=== PATIENT | female | born 1985 | race Two or more races ===

== ENCOUNTER 2024-02-11 12:31 | Inpatient (IN) | payer MEDICAID, SELFPAY ==
[2024-02-11 13:05] VITALS: BP 129/76; PULSE 112; RESP 18; TEMP 37.6; O2SAT 96; BMI 34.1
--- NOTE | 2024-02-11 13:07 | XR_ITS ---
Examination: CT abdomen and pelvis without contrast. Coronal 3-D reconstructions. Sagittal 2-D reconstructions. Date and time of exam:February 11, 2024 1317 hours INDICATIONS: Bilateral flank pain beginning today CTDI: vol (mGy): 14.5 DLP: (mGycm): 900 Technique: Axial images of the abdomen have been obtained, 3 mm slice thickness Intravenous contrast material has not been administered. Low dose protocols were performed. One or more of the following dose reduction techniques were used; automated exposure control, adjustment of the mA and/or KV according to patient size, use of iterative reconstruction technique. Findings: Diffuse fatty infiltration throughout the liver Suspicious for gallbladder sludge Spleen is not enlarged No pancreatic or adrenal mass Mild bilateral renal parenchymal scar formation No renal or ureteral calculi, no hydronephrosis Aorta normal size Normal appendix 15 mm fat-containing umbilical hernia No bowel obstruction or diverticulitis Anteverted uterus No bladder mass or bladder calculi The osseous structures are intact IMPRESSION: No renal or ureteral calculi, no hydronephrosis Mild bilateral renal parenchymal scar formation Normal appendix No bladder mass or bladder calculi
--- NOTE | 2024-02-11 13:07 | PD.EDRME ---
Rapid Medical Screening Exam RME Arrival date/time: 02/11/24 12:31 38-year-old female presents emergency department complaint of abdominal pain and back pain patient reports dysuria Chief Complaint: Nausea/Vomiting/Diarrhea Vital signs: Vital Signs Temperature 99.6 F 02/11/24 13:05 Pulse Rate 112 H 02/11/24 13:05 Respiratory Rate 18 02/11/24 13:05 Blood Pressure 129/76 02/11/24 13:05 Pulse Oximetry (%) 96 02/11/24 13:05 Oxygen Delivery Method Room Air 02/11/24 13:05
[2024-02-11 13:46] LABS: Basophils # (Auto) 0.1 Thou/mm3 (0.0-0.2); Basophils % (Auto) 0 % (0-2.5); Eosinophils % (Auto) 0 % (0-10); Hemoglobin 11.9 g/dL (12.0-16.0); Immature Granulocytes % (Auto) 1 % (0-0); Immature Granulocytes Auto 0.07 Thou/mm3 (0.00-0.00); Lymphocytes # (Auto) 0.9 Thou/mm3 (1.0-4.8); Lymphocytes % (Auto) 6 % (10-50); Mean Corpuscular HGB Conc 33.1 g/dl (31.0-37.0); Mean Corpuscular Volume 82 fL (80-100); Monocytes # (Auto) 0.7 Thou/mm3 (0.0-0.8); Monocytes % (Auto) 5 % (0-12); Neutrophils # (Auto) 13.1 Thou/mm3 (1.8-7.7); Neutrophils % (Auto) 88 % (37-80); Nucleated Red Blood Cell % 0 /100 WBC (0); Platelet Count 259 Thou/mm3 (140-440); RDW Standard Deviation 40.7 fL (36.4-46.3); White Blood Count 14.9 Thou/mm3 (3.6-11.0)
[2024-02-11 14:14] LABS: Alanine Aminotransferase 11 U/L (10-49); Albumin, Serum 4.2 gm/dL (3.5-5.0); Albumin/Globulin Ratio 1.5 (1.2-2.2); Alkaline Phosphatase 110 U/L (46-116); Anion Gap 9 (7-16); Aspartate Amino Transferase 10 U/L (0-34); BUN/Creatinine Ratio 10 Ratio (12-20); Bilirubin,Total 0.8 mg/dL (0.3-1.2); Blood Urea Nitrogen 7 mg/dL (9-23); Calcium 8.8 mg/dL (8.3-10.6); Calcium (Corrected) 8.8 mg/dL (8.5-10.1); Carbon Dioxide 24.3 mMol/L (20.0-31.0); Chloride 98 mMol/L (98-107); Creatinine (Component) 0.7 mg/dL (0.6-1.3); Globulin 2.8 gm/dL (2.3-3.5); Lipase 26 U/L (12-53); Osmolality,Calculated 279 (275-295); Potassium 3.5 mMol/L (3.4-5.1); Sodium 131 mMol/L (136-145); eGFR > 60 See Note
[2024-02-11 14:16] LABS: Glucose 445 mg/dL (74-106)
[2024-02-11] MEDS: ONDANSETRON ODT 4 MG TABRAP PO (14:18)
[2024-02-11] MEDS: KETOROLAC INJ 30 MG/ML VIAL IM (14:19)
[2024-02-11 15:25] LABS: Collection Type, Urine Clean Catch
[2024-02-11 15:36] LABS: Bacteria,Urine 1+; Bilirubin,Urine Negative (Negative); Blood,Urine 3+ (Negative); Color,Urine Yellow (Lt Yel-Yel); Glucose, Urine 4+ (Negative); Ketones,Urine 3+ (Negative); Leukocyte Esterase,Urine Positive (Negative); Nitrite,Urine Positive (Negative); Protein,Urine 1+ (Neg - Trace); RBC,Urine 59 /hpf (0-3); Specific Gravity,Urine 1.033 (1.001-1.035); Squamous Epithelial Cell,Urine 7 /hpf (0-5); Urobilinogen,Urine Negative mg/dL (0.0-1.0); WBC,Urine 1828 /hpf (0-5)
[2024-02-11 15:46] LABS: Clarity,Urine Cloudy (Clear/Hazy); Culture Indicated,Urine Yes
[2024-02-11 17:29] VITALS: BP 105/71; PULSE 95; RESP 16; TEMP 36.7; O2SAT 97
[2024-02-11 19:07] VITALS: BP 110/95; PULSE 101; RESP 18; TEMP 37.2; O2SAT 97
--- NOTE | 2024-02-11 19:23 | EKG_ITS ---
[facility] Test Date: 2024-02-11 Pat Name: DANG RANDHAWA Department: Room: - Gender: Female [employer] T[employer]: : 1985 Requested By: Natalio Trujillo Order Number: [id number] Reading MD: Natalio Trujillo Measurements Intervals [place] Rate: 92 P: 47 NC: 134 QRS: -6 QRSD: 98 T: 18 QT: 371 QTc: 460 Interpretive Statements SINUS RHYTHM POSSIBLE ANTERIOR MYOCARDIAL INFARCTION , OF INDETERMINATE AGE [30 ms Q WAVE IN V3/V4, OR R < 0.2 mV IN V4] Compared to ECG 08/19/2017 17:27:31 No significant changes /store/S0/[id number].pdf
[2024-02-11] MEDS: SODIUM CHLORIDE 0.9% 1000 ML 1,710 ML 1710 ML IV (19:40)
[2024-02-11] MEDS: ACETAMINOPHEN IVPB 1,000 MG/100 ML VIAL 250 MG IV (19:40)
[2024-02-11] MEDS: KETOROLAC INJ 30 MG/ML VIAL IVP (19:41)
[2024-02-11 20:00] LABS: Lactate (Lactic Acid) 1.1 mMol/L (0.4-2.0)
[2024-02-11 20:15] LABS: Partial Thromboplastin Time 26.9 Seconds (22.0-36.0); Prothrombin Time 11.2 Seconds (9.0-12.2)
[2024-02-11 20:18] LABS: B-Type Natriuretic Peptide < 20 pg/mL (0-100)
[2024-02-11 20:27] LABS: LDH (Lactate Dehydrogenase) 138 U/L (120-246); Magnesium 1.8 mg/dL (1.6-2.6); Phosphorous 3.1 mg/dL (2.4-5.1); Procalcitonin 1.11 ng/ml (0.0-0.49); Troponin I < 0.002 ng/mL (0.0-0.045)
[2024-02-11] MEDS: cefTRIAXone 1,000 MG in SODIUM CHLORIDE 0.9% (P) 50 ML 100 MG IV (20:28)
--- NOTE | 2024-02-11 20:56 | EDNOTE_ITS ---
Nausea/Vomit./Diarrhea-RME/HPI General Chief complaint: Nausea/Vomiting/Diarrhea Stated complaint: Fever, vomiting and pain in her back Time Seen by Provider: 02/11/24 19:17 Arrival date/time: 02/11/24 12:31 RME / HPI RME / HPI Narrative: 02/11/24 12:31 38-year-old female presents emergency department complaint of abdominal pain and back pain patient reports dysuria ------- Dr. Tam?s Main ED Evaluation: Patient is a 38-year-old diabetic female who presents to the emergency department with several days of increasingly severe bilateral flank pain, R greater than L, with dysuria and urinary frequency. Pat ient also complains of chills, sweats, fevers at home. Also body aches. Patient had nausea and vomiting prior to arrival but no diarrhea. No chest pain or dyspnea. No further medical complaints. Related Data Home Medications ?Medication ?Instructions ?Recorded ?Confirmed insulin glargine 100 unit/mL (3 85 unit subcut QDAY 05/08/22 05/08/22 mL) subcutaneous pen (Basaglar KwikPen U-100 Insulin) Previous Rx's ?Medication ?Instructions ?Recorded ondansetron HCl 4 mg tablet 4 mg PO TID PRN nausea and 05/09/22 vomiting #14 tabs ciprofloxacin HCl 500 mg tablet 500 mg PO BID #14 tabs 04/03/23 Allergies Allergy/AdvReac Type Severity Reaction Status Date / Time No Known Allergies Allergy Verified 04/03/23 16:12 Review of Systems Review of Systems Systems Reviewed: All systems reviewed, normal except as documented Past Medical History Past Medical History NEUROLOGIC: Negative Neurological Disorders or Seizures CARDIAC: Negative Cardiac Disorders or Congestive Heart Failure RESPIRATORY: Negative Chronic Obstructive Pulmonary Disease (COPD) or Asthma GASTROINTESTINAL: Positive Gastrointestinal Disorders and Obesity; Negative Hepatitis or Colorectal Cancer GENITOURINARY: Negative Genitourinary Disorders, Renal Disease or Prostate Cancer REPRODUCTIVE: Positive Genital Herpes; Negative Breast Cancer or Testicular Cancer MUSCULOSKELETAL: Positive Musculoskeletal Disorders; Negative Bone Cancer ENDOCRINE: Positive Endocrine Disorders and Diabetes Mellitus Type 2; Negative Diabetes Mellitus Type 1 HEMATOLOGIC: Negative Blood Disorders or Sickle Cell Disease OTHER HISTORY: Positive Chicken Pox; Negative Autoimmune Disease, Blood Transfusions, Blood Transfusion Reaction, Anesthesia Reactions, Organ Transplant, Chemotherapy, Radiation Therapy, Hyperbaric Therapy, MRSA, VRSA, Vancomycin-Resistant Enterococci, Human Immunodeficiency Virus (HIV), Measles, Mumps, Rubella (Tajik Measles), Pertussis, Clostridium Difficile, Cancer, Breast Cancer, Cervical Cancer, Colorectal Cancer, Lung Cancer, Ovarian Cancer, Prostate Cancer or Testicular Cancer Family History FAMILY HISTORY: Positive Family Respiratory Disorders and Family Cardiac Disorders; Negative Family Psychiatric Problems, Family Gastrointestinal Problems, Family Cancer, Family Surgery or Family Anesthesia Reaction Surgical History SURGICAL: Positive Section; Negative Organ Transplant Social History SMOKING STATUS: Never smoker SECOND HAND EXPOSURE: Yes SUBSTANCE USE: does not use ED Exam Narrative Physical exam: GENERAL APPEARANCE: alert and oriented x 4, well-developed, well-nourished, no acute distress VITALS: All vitals were reviewed and the pulse ox is 97% on room air, which is normal according to my interpretation. HEENT: Normocephalic, atraumatic; pupils equal, round, reactive to light; EOMI; mucous membranes pink, moist; oropharynx clear NECK: Supple LUNGS: CTABL; no wheezes, no rales, no rhonchi HEART: Tachycardic, regular rhythm; normal S1, S2; no murmurs ABDOMEN: non distended; normal BS; soft, no tenderness, no guarding, no rebound; no masses, no organomegaly, no hernia BACK: R>L CVA tenderness EXTREMITIES: atraumatic; no edema NEUROLOGIC: awake; alert and oriented x4; cranial nerves II-XII grossly intact; no focal sensory or motor deficits PSYCHIATRIC: appropriate mood and affect SKIN: warm, dry, normal color; no rashes Course Course Course Narrative: 1925: Sepsis alert initiated. Orders made at this time are congruent with ED Adult Sepsis Order List. Re-evaluation is to be completed. 2100: NS IVF infused. 2129: Sepsis reassessment performed consisting of lab review, vitals, physical exam including auscultation of heart, lungs, and visual evaluation of capillary refills, mucosal membranes and extremities. Quality Measures Possible source: genitourinary Blood cultures ordered: yes Antibiotic ordered: Yes Pertinent labs: 02/11/24 19:34 Lactic Acid 1.1 mMol/L (0.4-2.0) Procalcitonin 1.11 H ng/ml (0.0-0.49) sepsis Orders Category Date Time Status Bedside COVID-19 Antigen Test NOW Care 02/11/24 19:47 Completed Sponge Clipper STAT Care 02/11/24 19:23 Active Continuous Pulse Oximetry STAT Care 02/11/24 19:23 Completed EKG (ED ONLY) *Do not use* NOW Care 02/11/24 19:23 Completed Insert IV NOW Care 02/11/24 19:23 Completed NPO STAT Care 02/11/24 19:23 Active Strict Intake and Output Routine Care 02/11/24 19:[address] abdomen pelvis wo con Stat Exams 02/11/24 13:07 Completed EKG (ED Only) Stat Exams 02/11/24 19:23 Draft B-Type Natriuretic Peptide Stat Lab 02/11/24 19:34 Completed Blood Culture (Lab) Stat Lab 02/11/24 19:40 Received CBC Stat Lab 02/11/24 13:38 Completed Comprehensive Metabolic Panel Stat Lab 02/11/24 13:38 Completed LDH (Lactate Dehydrogenase) Stat Lab 02/11/24 19:34 Completed Lactate (Lactic Acid) Stat Lab 02/11/24 19:34 Completed Lipase Stat Lab 02/11/24 13:38 Completed Magnesium Stat Lab 02/11/24 19:34 Completed Partial Thromboplastin Time Stat Lab 02/11/24 19:40 Completed Phosphorous Stat Lab 02/11/24 19:34 Completed Procalcitonin Stat Lab 02/11/24 19:34 Completed Prothrombin Time with INR Stat Lab 02/11/24 19:40 Completed Troponin I Stat Lab 02/11/24 19:34 Completed UA, C/S IF [Urinalysis, C/S if Indicated] Stat Lab 02/11/24 15:02 Completed Urine Culture Stat Lab 02/11/24 15:02 Received Urine Culture Stat Lab 02/11/24 23:40 Received Acetaminophen Ivpb [Ofirmev Inj] Med 02/11/24 19:25 Discontinued 1,000 mg in 100 ml IV Q6H Insulin Regular Med 02/11/24 20:50 Discontinued 6 unit IV X1 ONE Ketorolac Inj [Toradol Inj] Med 02/11/24 13:07 Discontinued 30 mg IM X1 ONE Ketorolac Inj [Toradol Inj] Med 02/11/24 19:25 Discontinued 30 mg IVP X1 ONE Ondansetron Odt [Zofran Odt] Med 02/11/24 13:07 Discontinued 4 mg PO X1 ONE Sodium Chloride 0.9% 1000 ml [Ns] 1,710 ml Med 02/11/24 19:23 Discontinued IV 1,710 mls/hr cefTRIAXone [Rocephin] 1,000 mg Med 02/11/24 19:23 Discontinued Sodium Chloride 0.9% (P) [Ns 0.9% (P)] 50 ml IV X1 Vital Signs Vital signs: Vital Signs Temperature 99.6 F 02/11/24 13:05 Pulse Rate 112 H 02/11/24 13:05 Respiratory Rate 18 02/11/24 13:05 Blood Pressure 129/76 02/11/24 13:05 Pulse Oximetry (%) 96 02/11/24 13:05 Oxygen Delivery Method Room Air 02/11/24 13:05 Nausea/Vomiting/Diarrhea MDM Narrative MDM Narrative:: Patient has UTI plus tachycardia and along with her leukocytosis she meets sepsis criteria. Lactate is normal. She got Rocephin 1 g, 30 cc/kilogram normal saline bolus as well as Ofirmev IV and ketorolac IV. For pain. Patient data External records reviewed:: [facility] previous records (Per chart review, patient was seen here on 03/03/23 for a UTI.) Clinical information provided by:: patient Social determinants that could affect healthcare access:: none Patient has the following chronic illnesses:: DM How is presenting disease/condition affected by chronic disease/condition?: exacerbated by Evaluation data The following diagnostics were reviewed and interpreted by me:: lab results, radiology exam(s) and EKG tracing(s) Lab and/or radiology exams considered but not ordered:: none Interpretation Summary: WBC count is elevated at 14.9, Sodium is slightly low at 131, Glucose is elevated at 445, anion gap is normal at 9, Lactate is normal at 1.1, Procalcitonin is elevated at 1.1, troponin is normal, BNP is normal, according to my interpretation. EKG done at 2126, NSR, rate of 92, left axis deviation, no ectopy, Q waves in lead III and avF, no acute ischemia, according to my interpretation. ----- [place] [facility] Report Signed Patient: DANG RIVAS. Record#: [id number] Birthdate: 1985 Age/Sex: 38 / F Location: [facility] Attending Dr: Ordering Physician: Colten NIETO)Jesus NP Date of Service: 02/11/24 Procedure(s): CT abdomen pelvis wo [facility] Accession Number(s): [id number] cc: Colten (GURMEET),Jesus LEVI; Maryanne RivasP; Drew Rincon MD~ Examination: CT abdomen and pelvis without contrast. Coronal 3-D reconstructions. Sagittal 2-D reconstructions. Date and time of exam:February 11, 2024 1317 hours INDICATIONS: Bilateral flank pain beginning today CTDI: vol (mGy): 14.5 DLP: (mGycm): 900 Technique: Axial images of the abdomen have been obtained, 3 mm slice thickness Intravenous contrast material has not been administered. Low dose protocols were performed. One or more of the following dose reduction techniques were used; automated exposure control, adjustment of the mA and/or KV according to patient size, use of iterative reconstruction technique. Findings: Diffuse fatty infiltration throughout the liver Suspicious for gallbladder sludge Spleen is not enlarged No pancreatic or adrenal mass Mild bilateral renal parenchymal scar formation No renal or ureteral calculi, no hydronephrosis Aorta normal size Normal appendix 15 mm fat-containing umbilical hernia No bowel obstruction or diverticulitis Anteverted uterus No bladder mass or bladder calculi The osseous structures are intact IMPRESSION: No renal or ureteral calculi, no hydronephrosis Mild bilateral renal parenchymal scar formation Normal appendix No bladder mass or bladder calculi Dictated By: Drew Rincon MD Signed By: <Electronically signed by Drew Rincon MD in OV> 02/11/24 1348 Medications / Prescriptions Medications / Prescriptions considered but not ordered:: none Medication administrations:: Medication Administration History Acetaminophen (Acetaminophen 325 Mg Tablet) 650 mg PO Q6HR PRN PRN Reason: PAIN OR FEVER > 101 Stop: 03/12/24 21:45 Last Admin: 02/12/24 01:03 Dose: 650 mg Documented By: FF Dextrose (Dextrose 50%-Water Inj 50 Ml Syringe) 25 ml IV Q15MIN PRN PRN Reason: BG 50-70 responsive npo pt Stop: 03/12/24 21:49 Dextrose (Dextrose 50%-Water Inj 50 Ml Syringe) 50 ml IV Q15MIN PRN PRN Reason: BG <50 OR BG <70 & pt unresponsive Stop: 03/12/24 21:49 Glucagon (Glucagon Inj 1 Mg Vial) 1 mg IM Q15MIN PRN PRN Reason: BG <70, and no IV access Ceftriaxone Sodium/Dextrose (Rocephin/D5w 1gm Iv Premix) 50 mls @ 100 mls/hr IV HS [facility] Stop: 02/19/24 20:59 Insulin Glargine (Insulin Glargine (Lantus) 5 Unit/0.05 Ml (Per 5 Units)) 45 unit SC HS [facility] Stop: 03/13/24 20:59 Insulin Human Lispro (Insulin Lispro (Admelog) 1 Unit/0.01 Ml Unit) 0 unit SC [facility]; Protocol Stop: 03/13/24 07:29 Ondansetron HCl (Ondansetron Inj 2 Mg/Ml Inj 2 Ml) 4 mg IV Q6H PRN; Protocol PRN Reason: NAUSEA OR VOMITING Stop: 03/12/24 21:33 Oxycodone/Acetaminophen (Oxycodone/Apap 5/325 Tablet) 1 tab PO Q6H PRN PRN Reason: Pain Scale 4-10 (Moderate Stop: 02/16/24 21:33 Last Admin: 02/12/24 02:44 Dose: 1 tab Documented By: BRAULIO Pantoprazole Sodium (Pantoprazole 40 Mg Tablet) 40 mg PO QDAY [facility] Stop: 03/13/24 08:59 Sennosides (Senna Tablet) 1 tab PO QDAY [facility]; Protocol Stop: 03/13/24 08:59 Discontinued Medications Heparin Sodium (Porcine) (Heparin Sod Inj 5000 Unit/Ml Vial) 5,000 unit SC X1 ONE Stop: 02/11/24 21:43 Last Admin: 02/11/24 22:48 Dose: 5,000 unit Documented By: TAMMY Co-signed By: YAAKOV Sodium Chloride (Ns) 1,710 mls @ 1,710 mls/hr 30 ml/kg infuse over 60 min (1710 ml) IV .Q1H ONE Stop: 02/11/24 20:22 Last Infusion: 02/11/24 21:00 Dose: Infused Documented By: Admin: 02/11/24 19:40 Dose: 1,710 mls/hr Documented By: TAMMY Ceftriaxone Sodium 1,000 mg/ (Sodium Chloride) 50 mls @ 100 mls/hr IV X1 ONE Stop: 02/11/24 19:52 Last Infusion: 02/11/24 21:00 Dose: Infused Documented By: Admin: 02/11/24 20:28 Dose: 100 mls/hr Documented By: TAMMY Acetaminophen (Ofirmev Inj) 1,000 mg in 100 mls @ 250 mls/hr IV Q6H [place] Stop: 02/12/24 13:48 Last Infusion: 02/11/24 20:05 Dose: Infused Documented By: Admin: 02/11/24 19:40 Dose: 250 mls/hr Documented By: TAMMY Ibuprofen (Ibuprofen Tab 600 Mg Tablet) 600 mg PO X1 ONE Stop: 02/12/24 02:20 Last Admin: 02/12/24 03:04 Dose: 600 mg Documented By: FF Insulin Human Regular (Insulin Hum Regular 1 Unit/0.01 Ml (Per Unit)) 6 unit IV X1 ONE Stop: 02/11/24 20:51 Last Admin: 02/11/24 21:30 Dose: Not Given Documented By: TAMMY Non-Admin Reason: Cancelled by Provider Ketorolac Tromethamine (Ketorolac Inj 30 Mg/Ml Vial) 30 mg IM X1 ONE Stop: 02/11/24 13:08 Last Admin: 02/11/24 14:19 Dose: 30 mg Documented By: LIBRADO Ketorolac Tromethamine (Ketorolac Inj 30 Mg/Ml Vial) 30 mg IVP X1 ONE Stop: 02/11/24 19:26 Last Admin: 02/11/24 19:41 Dose: 30 mg Documented By: TAMMY Ondansetron HCl (Ondansetron Odt 4 Mg Tabrap) 4 mg PO X1 ONE; Protocol Stop: 02/11/24 13:08 Last Admin: 02/11/24 14:18 Dose: 4 mg Documented By: LIBRADO see above Consultations Consultation(s) initiated? (list below): Yes Consultation #1 (Physician, Specialty, Details): Discussed case with [Dr. Roman, attending Dr. Roach] from Hospitalist service regarding admission. Discussed patients ED course, exam findings, labs, and radiology results. The Hospitalist [agrees] to accept the patient for admission. Diagnosis Nausea Differential Diagnosis: dehydration and other (UTI, cystitis, pyelonephritis, electrolyte abnormality, hyperglycemia, DKA) Most likely diagnosis given after review of the tests above:: see below Admission Indicated Admission indicated?: indicated Admission Request Was there a request for admission?: Yes Admission Attestation Admission request attestation: Discussed case with [] from Hospitalist service regarding admission. Discussed patients ED course, exam findings, labs, and radiology results. The Hospitalist [agrees,declines] to accept the patient for admission. Disposition Plan Disposition Plan: Admit Critical Care Time Critical Care Time Critical Care Time: Yes Total Critical Care Time (min.): 35 Attestation: The high probability of sudden, clinically significant deterioration in the patient?s condition required the highest level of my preparedness to intervene urgently. The services I provided to this patient were to treat and/or prevent clinically significant deterioration. Services included the following: chart data review, reviewing nursing notes and/or old charts, documentation time, leasing sales consultant collaboration regarding findings and treatment options, medication orders and management, direct patient care, vital sign assessments and ordering, interpreting and reviewing diagnostic studies and lab tests. Aggregate critical care time includes only time during which I was engaged in work directly related to the patient?s care, as described above, whether at bedside or elsewhere in the Emergency Department. It did not include time spent performing other reported procedures or the services of residents, students, nurses or physician assistants. Discharge Plan Plan Patient Disposition: Admit Acute Care w/in Hospital Problem List Clinical Impression: Sepsis, Pyelonephritis, Urinary tract infection, Acute hyperglycemia
[2024-02-11 21:28] VITALS: BP 119/61; PULSE 96; RESP 18; O2SAT 97
--- NOTE | 2024-02-11 21:51 | PD.RESHP ---
Documentation for date of: 02/11/24 HPI History of Present Illness History of present illness: A 38-year-old female with a history of type 2 diabetes (on insulin) presented to the ED with abdominal and bilateral flank pain, nausea, vomiting, chills, fever, generalized body aches, and dysuria. The symptoms began on Friday, initially thought to be menstrual cramps, but worsened with the onset of fever. The patient has a history of annual UTIs, typically managed with oral antibiotics, but felt this episode was more severe due to possible antibiotic resistance, prompting her ED visit. On presentation, the patient was hemodynamically stable but mildly tachycardic. Lab results revealed leukocytosis (WBC 14.9), anemia (hemoglobin 11.9), hyperglycemia (glucose 445), and a positive urinalysis (nitrate, leukocyte esterase, WBC 1828, 4+ bacteria, protein, glucose). Procalcitonin was 1.11, and lactic acid was negative. The patient met sepsis criteria, with elevated heart rate, WBC count, and fever, prompting a sepsis alert. A CT abdomen/pelvis showed no renal or ureteral stones, no hydronephrosis, but mild bilateral renal parenchymal scarring. Physical examination revealed CVA tenderness, more pronounced on the right side. The patient will be admitted for treatment and management of sepsis secondary to UTI/pyelonephritis. #PMH as above #PSH 3 C-sections #Social history denies smoking, occasional drinking, denies any recreational drug use, lives with kids and sister #Family history is positive for heart attack and heart failure Patient will be admitted for sepsis secondary due to UTI/pyelonephritis treatment and management. Review of Systems Review of Systems Systems Reviewed: All systems reviewed, normal except as documented Exam Vital Signs Temp Pulse Resp BP Pulse Ox O2 Del Method 99 F 96 18 119/61 97 Room Air 02/11/24 19:07 02/11/24 21:28 02/11/24 21:28 02/11/24 21:28 02/11/24 21:28 02/11/24 21:28 Narrative Exam GENERAL: no acute distress, AAO x3, well nourished. HEENT: Head AT/ NC. Mucous membranes moist. PERRL. NECK: Supple, no lymphadenopathy, no carotid bruits. CARDIOVASCULAR: RRR. Normal S1/S2, No m/r/g. No pitting edema of bilateral LEs. RESPIRATORY: CTAB. No wheezing, rhonchi, crackles. GASTROINTESTINAL: Abdomen soft, non tender no palpable masses. Bowel sounds present in all 4 quadrants. MUSCULOSKELETAL:? No cyanosis or edema, no visible joint swelling. BL CVA tenterness NEUROLOGICAL: CN II-XII grossly intact. No focal deficits. Sensation intact, symmetric. PSYCHIATRIC: Awake and alert, not agitated, normal mood and affect. INTEGUMENTARY: No obvious rashes, no jaundice, normal turgor. Results: Labs 02/12/24 05:20 02/12/24 05:20 Labs: Short CBC 02/11/24 Range/Units 13:38 WBC 14.9 H (3.6-11.0) Thou/mm3 Hgb 11.9 L (12.0-16.0) g/dL Hct 36.0 (36.0-46.0) % Plt Count 259 (140-440) Thou/mm3 BMP 02/11/24 13:38 Sodium 131 L Potassium 3.5 Chloride 98 Carbon Dioxide 24.3 BUN 7 L Creatinine 0.7 Glucose 445 H* Calcium 8.8 Cardiac Enzymes 02/11/24 Range/Units 19:34 Troponin I < 0.002 (0.0-0.045) ng/mL Liver Function 02/11/24 Range/Units 13:38 Total Bilirubin 0.8 (0.3-1.2) mg/dL AST 10 (0-34) U/L ALT 11 (10-49) U/L Alkaline Phosphatase 110 (46-116) U/L Albumin 4.2 (3.5-5.0) gm/dL Urine 02/11/24 Range/Units 15:02 Urine Color Yellow (Lt Yel-Yel) Urine Clarity Cloudy A (Clear/Hazy) Urine pH 6.0 (5.0-7.0) Ur Specific [place] 1.033 (1.001-1.035) Urine Protein 1+ A (Neg - Trace) Urine Glucose (UA) 4+ A (Negative) Quality Measures Quality Measures VTE prophylaxis Medications Home Medications and Allergies Home Medications ?Medication ?Instructions ?Recorded ?Confirmed ?Type insulin glargine 100 unit/mL (3 45 unit subcut HS 02/12/24 02/12/24 History mL) subcutaneous pen (Lantus Solostar U-100 Insulin) metformin 500 mg 24 hr 500 mg PO QDAY 02/12/24 02/12/24 History tablet,extended release (gastric retention) sitagliptin phosphate 25 mg tablet 25 mg PO QDAY 02/12/24 02/12/24 History (Januvia) Allergies Allergy/AdvReac Type Severity Reaction Status Date / Time No Known Allergies Allergy Verified 04/03/23 16:12 Visit Medications Acetaminophen (Acetaminophen 325 Mg Tablet) 650 mg PO Q6HR PRN PRN Reason: PAIN OR FEVER > 101 Stop: 03/12/24 21:45 Dextrose (Dextrose 50%-Water Inj 50 Ml Syringe) 25 ml IV Q15MIN PRN PRN Reason: BG 50-70 responsive npo pt Stop: 03/12/24 21:49 Dextrose (Dextrose 50%-Water Inj 50 Ml Syringe) 50 ml IV Q15MIN PRN PRN Reason: BG <50 OR BG <70 & pt unresponsive Stop: 03/12/24 21:49 Glucagon (Glucagon Inj 1 Mg Vial) 1 mg IM Q15MIN PRN PRN Reason: BG <70, and no IV access Ceftriaxone Sodium/Dextrose (Rocephin/D5w 1gm Iv Premix) 50 mls @ 100 mls/hr IV QDAY [facility] Stop: 02/18/24 21:41 Insulin Glargine (Insulin Glargine (Lantus) 5 Unit/0.05 Ml (Per 5 Units)) 45 unit SC [facility] Stop: 03/13/24 20:59 Insulin Human Lispro (Insulin Lispro (Admelog) 1 Unit/0.01 Ml Unit) 0 unit SC [facility]; Protocol Stop: 03/13/24 07:29 Ondansetron HCl (Ondansetron Inj 2 Mg/Ml Inj 2 Ml) 4 mg IV Q6H PRN; Protocol PRN Reason: NAUSEA OR VOMITING Stop: 03/12/24 21:33 Oxycodone/Acetaminophen (Oxycodone/Apap 5/325 Tablet) 1 tab PO Q6H PRN PRN Reason: Pain Scale 4-10 (Moderate Stop: 02/16/24 21:33 Pantoprazole Sodium (Pantoprazole 40 Mg Tablet) 40 mg PO QDAY [facility] Stop: 03/13/24 08:59 Sennosides (Senna Tablet) 1 tab PO QDAY [facility]; Protocol Stop: 03/13/24 08:59 Discontinued Medications Heparin Sodium (Porcine) (Heparin Sod Inj 5000 Unit/Ml Vial) 5,000 unit SC X1 ONE Stop: 02/11/24 21:43 Sodium Chloride (Ns) 1,710 mls @ 1,710 mls/hr 30 ml/kg infuse over 60 min (1710 ml) IV .Q1H ONE Stop: 02/11/24 20:22 Last Infusion: 02/11/24 21:00 Dose: Infused Ceftriaxone Sodium 1,000 mg/ (Sodium Chloride) 50 mls @ 100 mls/hr IV X1 ONE Stop: 02/11/24 19:52 Last Infusion: 02/11/24 21:00 Dose: Infused Acetaminophen (Ofirmev Inj) 1,000 mg in 100 mls @ 250 mls/hr IV Q6H [facility] Stop: 02/12/24 13:48 Last Infusion: 02/11/24 20:05 Dose: Infused Insulin Human Regular (Insulin Hum Regular 1 Unit/0.01 Ml (Per Unit)) 6 unit IV X1 ONE Stop: 02/11/24 20:51 Last Admin: 02/11/24 21:30 Dose: Not Given Ketorolac Tromethamine (Ketorolac Inj 30 Mg/Ml Vial) 30 mg IM X1 ONE Stop: 02/11/24 13:08 Last Admin: 02/11/24 14:19 Dose: 30 mg Ketorolac Tromethamine (Ketorolac Inj 30 Mg/Ml Vial) 30 mg IVP X1 ONE Stop: 02/11/24 19:26 Last Admin: 02/11/24 19:41 Dose: 30 mg Ondansetron HCl (Ondansetron Odt 4 Mg Tabrap) 4 mg PO X1 ONE; Protocol Stop: 02/11/24 13:08 Last Admin: 02/11/24 14:18 Dose: 4 mg Assessment & Plan Plan 38-year-old female with past medical history of DM type II on insulin was admitted for sepsis secondary due to UTI treatment and management #sepsis 2/2uti/pyelonephritis SIRS positive 3 out of 4, tachycardia, febrile, with source of infection, WBC elevated UA consistent with UTI Patient complains of dysuria symptoms -Admit to MedSur -Follow-up with urine culture/blood culture -Ceftriaxone daily -IV fluid per sepsis protocol 30 cc/kg -Daily CBC CMP -Pain management with Tylenol and Percocet #IDDM type II Home medication is metformin, Januvia, Lantus 45 at bedtime -Restarted Lantus 45 at bedtime -Insulin sliding scale -Will follow-up with A1c -Control blood sugar -Carb consistent diet Disposition:medsurge DVT prophylaxis: heparin q12 GI prophylaxis: none Diet: carb consistent Lines: PIV CODE STATUS:Full code Patient care was discussed with attending physician Dr. Nila Roman MD PGY-2 I have carefully reviewed this document. Due to imperfections in the voice software, there could be grammatical errors including phonetic/typographic errors. This in no way compromises the medical care the patient is receiving Attending Provider Attestation/Addendum I reviewed labs, imaging, EKG, home medications and prior available records. Face to face evaluation was performed by me. I have personally examined the patient and discussed assessment and plan with the IM team. I reviewed the resident note and agree with the plan with exceptions as below. 38-year-old female with history of frequent UTIs and insulin-dependent diabetes mellitus who presented with a chief complaint of abdominal pain, nausea, vomiting, and dysuria. She was found to have sepsis secondary to acute UTI. Sepsis secondary to acute UTI: CT abdomen/pelvis showed no hydronephrosis or renal calculi. Started the patient on IV ceftriaxone. Continue fluids per sepsis protocol. Send urine and blood cultures. Tylenol as needed for fevers. Trend WBC. Uncontrolled diabetes mellitus with hyperglycemia: Started the patient on insulin therapy, both Lantus plus sliding scale insulin. Monitor fingersticks. Diabetic diet.
[2024-02-11 22:47] VITALS: RESP 96
[2024-02-11] MEDS: HEPARIN SOD INJ 5000 UNIT/ML VIAL SC (22:48)
[2024-02-11 23:18] VITALS: BMI 34.7
[2024-02-12] VITALS (17 sets, daily range): BP systolic 100–137; BP diastolic 52–75; PULSE 67–117; RESP 17–99; TEMP 36.1–40; O2SAT 92–97; BMI 34.8
[2024-02-12] MEDS: ACETAMINOPHEN 325 MG TABLET 650 MG PO (01:03)
--- NOTE | 2024-02-12 02:19 | PC.NURSE ---
Recheck pt's temp orally and Notify of pt's temp. 104. No orders made at this time.
--- NOTE | 2024-02-12 02:40 | PC.NURSE ---
. Dr. Mcclellan and Dr. Jules regarding patient's chief complaint of pain on the chest which radiates to the back and lower left abd. Dr. Mcclellan assessed patient. Patient's pain medication of oxycodon was administered to patient. Patient also had a high grade fever of 104.0 orally. Cooling measures was applied to the patient head and axillary.
[2024-02-12] MEDS: oxyCODONE/APAP 5/325 TABLET 1 TAB PO ×3 (02:44→19:25)
[2024-02-12] MEDS: IBUPROFEN TAB 600 MG TABLET PO (03:04)
--- NOTE | 2024-02-12 03:58 | PC.NURSE ---
Following up on patient. Patient stated that her pain level has gone down and when checking patient's temperature orally after giving her PRN oxycodon. A temp of 102 was obtained. Per patient, the ice packs and cool towel is helping her.
[2024-02-12 06:31] LABS: Basophils % (Auto) 0 % (0-2.5); Eosinophils # (Auto) 0.1 Thou/mm3 (0.0-0.5); Eosinophils % (Auto) 1 % (0-10); Hematocrit 33.1 % (36.0-46.0); Hemoglobin 10.9 g/dL (12.0-16.0); Immature Granulocytes % (Auto) 0 % (0-0); Immature Granulocytes Auto 0.05 Thou/mm3 (0.00-0.00); Lymphocytes # (Auto) 1.4 Thou/mm3 (1.0-4.8); Lymphocytes % (Auto) 11 % (10-50); Mean Corpuscular HGB Conc 32.9 g/dl (31.0-37.0); Mean Corpuscular Hemoglobin 26.7 pg (25.0-35.0); Mean Corpuscular Volume 81 fL (80-100); Monocytes % (Auto) 7 % (0-12); Neutrophils # (Auto) 10.3 Thou/mm3 (1.8-7.7); Neutrophils % (Auto) 81 % (37-80); Nucleated Red Blood Cell % 0 /100 WBC (0); Platelet Count 221 Thou/mm3 (140-440); RDW Standard Deviation 40.9 fL (36.4-46.3); Red Blood Count 4.09 Miln/mm3 (4.00-5.20); White Blood Count 12.8 Thou/mm3 (3.6-11.0)
[2024-02-12 06:53] LABS: Glucose Estimated Average 315 mg/dL (80-131); Hemoglobin A1C 12.6 % Hgb (4.8-6.0)
[2024-02-12 07:03] LABS: Alanine Aminotransferase 8 U/L (10-49); Albumin, Serum 3.7 gm/dL (3.5-5.0); Anion Gap 11 (7-16); Aspartate Amino Transferase < 10 U/L (0-34); BUN/Creatinine Ratio 18 Ratio (12-20); Bilirubin,Total 0.6 mg/dL (0.3-1.2); Blood Urea Nitrogen 11 mg/dL (9-23); Calcium 8.3 mg/dL (8.3-10.6); Calcium (Corrected) 8.5 mg/dL (8.5-10.1); Carbon Dioxide 20.3 mMol/L (20.0-31.0); Chloride 100 mMol/L (98-107); Creatinine (Component) 0.6 mg/dL (0.6-1.3); Estimated Creatinine Clearance 146.2 mL/min (>60); Globulin 2.6 gm/dL (2.3-3.5); Glucose 355 mg/dL (74-106); Magnesium 1.8 mg/dL (1.6-2.6); Osmolality,Calculated 276 (275-295); Phosphorous 2.6 mg/dL (2.4-5.1); Potassium 3.1 mMol/L (3.4-5.1); Sodium 131 mMol/L (136-145); Total Protein 6.3 gm/dL (5.7-8.2); eGFR > 60 See Note
[2024-02-12 07:04] LABS: Albumin/Globulin Ratio 1.4 (1.2-2.2); Alkaline Phosphatase 98 U/L (46-116); Cardiac Risk Estimate 4.3 RATIO (3.7-5.6); Cholesterol 134 mg/dL (132-200); HDL Cholesterol 31 mg/dL (40-60); LDL Cholesterol,Calculated 77 mg/dL (0-130); Thyroid Stimulating Hormone 1.08 uIU/mL (0.55-4.78); Triglycerides 130 mg/dL (30-150)
[2024-02-12] MEDS: PANTOPRAZOLE 40 MG TABLET PO (08:00)
[2024-02-12] MEDS: SENNA TABLET 1 TAB PO (08:00)
[2024-02-12] MEDS: INSULIN LISPRO (AdmeLOG) 1 UNIT/0.01 ML UNIT SC ×4 (08:04→21:01)
[2024-02-12] MEDS: INSULIN GLARGINE (Lantus) 5 UNIT/0.05 ML (PER 5 UNITS) 45 UNIT SC (08:04)
[2024-02-12] MEDS: POTASSIUM CHLORIDE 10% 20 MEQ/15 ML UDC 40 MEQ PO (10:43)
--- NOTE | 2024-02-12 11:14 | ESPR_ITS ---
<Statement entered by Snehal Barnett MD - 02/15/24 16:34> I reviewed above note and agree with findings and plans. I have also personally examined the patient with medicine team and went over assessment and plan with medical team including international editorial producer and resident physician. <Statement entered by Humera Eng DO - 02/12/24 14:30> Senior attestation: Patient was examined and case was reviewed with team including attending physician. Note reviewed, I agree with most of its contents and agree with the patient's care. Patient's glucose noted to be elevated this morning, will start lantus this AM. Urine and blood cultures pending, continue IV abx. Humera Eng DO PGY-3 Documentation for date of: 02/12/24 Subjective Subjective Interval history: Patient seen at bedside. Admitted overnight for suspicion of sepsis secondary to urinary tract infection. Patient's hemoglobin A1c 12.6, patient on 45 units of Lantus at home. Patient given 45 units Lantus in a.m., will continue to check blood glucose Will follow urine culture. Monitor vitals. Will continue to monitor patient. Exam Vital Signs Temp Pulse Resp BP Pulse Ox O2 Del Method 97.7 F 92 18 111/52 L 93 L Room Air 02/12/24 08:00 02/12/24 08:50 02/12/24 08:50 02/12/24 08:00 02/12/24 08:00 02/12/24 08:00 Narrative Exam GENERAL: no acute distress, AAO x3, well nourished. HEENT: Head AT/ NC. Mucous membranes moist. PERRL. NECK: Supple, no lymphadenopathy, no carotid bruits. CARDIOVASCULAR: RRR. Normal S1/S2, No m/r/g. No pitting edema of bilateral LEs. RESPIRATORY: CTAB. No wheezing, rhonchi, crackles. GASTROINTESTINAL: Abdomen soft, non tender no palpable masses. Bowel sounds present in all 4 quadrants. MUSCULOSKELETAL:? No cyanosis or edema, no visible joint swelling. Positive for CVA tenderness right side. NEUROLOGICAL: CN II-XII grossly intact. No focal deficits. Sensation intact, symmetric. PSYCHIATRIC: Awake and alert, not agitated, normal mood and affect. INTEGUMENTARY: No obvious rashes, no jaundice, normal turgor. Objective Labs 02/12/24 05:20 02/12/24 05:20 Labs: Laboratory Results - last 24 hr 02/11/24 02/11/24 02/11/24 13:38 15:02 19:34 WBC 14.9 H RBC 4.40 Hgb 11.9 L Hct 36.0 MCV 82 MCH 27.0 MCHC 33.1 RDW Std Deviation 40.7 Plt Count 259 Neut % (Auto) 88 H Lymph % (Auto) 6 L [place] % (Auto) 5 Eos % (Auto) 0 Baso % (Auto) 0 Neut # (Auto) 13.1 H Lymph # (Auto) 0.9 L [place] # (Auto) 0.7 Eos # (Auto) 0.0 Baso # (Auto) 0.1 Immature Gran # (Auto) 0.07 H Absolute Nucleated RBC 0.00 Immature Gran % 1 H Nucleated RBC % 0 PT INR APTT Sodium 131 L Potassium 3.5 Chloride 98 Carbon Dioxide 24.3 Anion Gap 9 BUN 7 L Creatinine 0.7 Estim Creat Clear Calc 124.0 eGFR > 60 BUN/Creatinine Ratio 10 L Glucose 445 H* Estimated Ave Glu mg/dL Hemoglobin A1c Calculated Osmolality 279 Lactic Acid 1.1 Calcium 8.8 Corrected Calcium 8.8 Phosphorus 3.1 Magnesium 1.8 Total Bilirubin 0.8 AST 10 ALT 11 Alkaline Phosphatase 110 Lactate Dehydrogenase 138 Troponin I < 0.002 B-Natriuretic Peptide < 20 Total Protein 7.0 Albumin 4.2 Globulin 2.8 Albumin/Globulin Ratio 1.5 Triglycerides Cholesterol LDL Cholesterol, Calc HDL Cholesterol Cholesterol/HDL Ratio Lipase 26 Procalcitonin 1.11 H TSH Ur Collection Type Clean Catch Urine Color Yellow Urine Clarity Cloudy A Urine pH 6.0 Ur Specific [place] 1.033 Urine Protein 1+ A Urine Glucose (UA) 4+ A Urine Ketones 3+ A Urine Blood 3+ A Urine Nitrite Positive Urine Bilirubin Negative Urine Urobilinogen (Auto) Negative Ur Leukocyte Esterase Positive Urine RBC 59 H Urine WBC 1828 H Ur Squamous Epith Cells 7 H Urine Bacteria 1+ A Ur Culture Indicated? Yes 02/11/24 02/12/24 19:40 05:20 WBC 12.8 H RBC 4.09 Hgb 10.9 L Hct 33.1 L MCV 81 MCH 26.7 MCHC 32.9 RDW Std Deviation 40.9 Plt Count 221 D Neut % (Auto) 81 H Lymph % (Auto) 11 [place] % (Auto) 7 Eos % (Auto) 1 Baso % (Auto) 0 Neut # (Auto) 10.3 H Lymph # (Auto) 1.4 [place] # (Auto) 1.0 H Eos # (Auto) 0.1 Baso # (Auto) 0.0 Immature Gran # (Auto) 0.05 H Absolute Nucleated RBC 0.00 Immature Gran % 0 Nucleated RBC % 0 PT 11.2 INR 1.0 APTT 26.9 Sodium 131 L Potassium 3.1 L Chloride 100 Carbon Dioxide 20.3 Anion Gap 11 BUN 11 Creatinine 0.6 Estim Creat Clear Calc 146.2 eGFR > 60 BUN/Creatinine Ratio 18 Glucose [address] Glu mg/dL 315 H Hemoglobin A1c 12.6 H Calculated Osmolality 276 Lactic Acid Calcium 8.3 Corrected Calcium 8.5 Phosphorus 2.6 Magnesium 1.8 Total Bilirubin 0.6 AST < 10 ALT 8 L Alkaline Phosphatase 98 Lactate Dehydrogenase Troponin I B-Natriuretic Peptide Total Protein 6.3 Albumin 3.7 D Globulin 2.6 Albumin/Globulin Ratio 1.4 Triglycerides 130 Cholesterol 134 LDL Cholesterol, Calc 77 HDL Cholesterol 31 L Cholesterol/HDL Ratio 4.3 Lipase Procalcitonin TSH 1.08 Ur Collection Type Urine Color Urine Clarity Urine pH Ur Specific [place] Urine Protein Urine Glucose (UA) Urine Ketones Urine Blood Urine Nitrite Urine Bilirubin Urine Urobilinogen (Auto) Ur Leukocyte Esterase Urine RBC Urine WBC Ur Squamous Epith Cells Urine Bacteria Ur Culture Indicated? Quality Measures Quality Measures sepsis Current suspected stage: ruled out Possible source: genitourinary Blood cultures ordered: yes Antibiotic ordered: Yes Assessment & Plan Assessment Current Active Medications: Generic Name Dose Route Start Last Admin Trade Name Terrell PRN Reason Stop Dose Admin Acetaminophen 650 mg 02/11/24 21:46 02/12/24 01:03 Acetaminophen 325 Mg Tablet PO 03/12/24 21:45 650 mg Q6HR PRN Administration PAIN OR FEVER > 101 Dextrose 25 ml 02/11/24 21:50 Dextrose 50%-Water Inj 50 Ml Syringe IV 03/12/24 21:49 Q15MIN PRN BG 50-70 responsive npo pt Dextrose 50 ml 02/11/24 21:50 Dextrose 50%-Water Inj 50 Ml Syringe IV 03/12/24 21:49 Q15MIN PRN BG <50 OR BG <70 & pt unresponsive Glucagon 1 mg 02/11/24 21:50 Glucagon Inj 1 Mg Vial IM Q15MIN PRN BG <70, and no IV access Ceftriaxone Sodium/Dextrose 50 mls @ 100 mls/hr 02/12/24 21:00 Rocephin/D5w 1gm Iv Premix IV 02/19/24 20:59 HS [facility] Insulin Glargine 45 unit 02/12/24 09:00 02/12/24 08:04 Insulin Glargine (Lantus) 5 Unit/0.05 Ml (Per 5 Units) SC 03/13/24 08:59 45 unit QDAY [facility] Administration Insulin Human Lispro 0 unit 02/12/24 07:30 02/12/24 11:09 Insulin Lispro (Admelog) 1 Unit/0.01 Ml Unit SC 03/13/24 07:29 6 unit ACHS [facility] Administration Protocol Ondansetron HCl 4 mg 02/11/24 21:34 Ondansetron Inj 2 Mg/Ml Inj 2 Ml IV 03/12/24 21:33 Q6H PRN NAUSEA OR VOMITING Protocol Oxycodone/Acetaminophen 1 tab 02/11/24 21:34 02/12/24 10:58 Oxycodone/Apap 5/325 Tablet PO 02/16/24 21:33 1 tab Q6H PRN Administration Pain Scale 4-10 (Moderate Pantoprazole Sodium 40 mg 02/12/24 09:00 02/12/24 08:00 Pantoprazole 40 Mg Tablet PO 03/13/24 08:59 40 mg QDAY [facility] Administration Sennosides 1 tab 02/12/24 09:00 02/12/24 08:00 Senna Tablet PO 03/13/24 08:59 1 tab QDAY [facility] Administration Protocol Plan Assessment and Plan: Summary: Ms. Rivas is a 38-year-old female with past medical history of DM type II on insulin admitted for suspicion of sepsis secondary due to UTI treatment and management # SIRS 3/4 # Suspicion of sepsis secondary to # Urinary tract infection # Leukocytosis SIRS positive 3 out of 4, tachycardia, febrile, with source of infection, WBC elevated UA consistent with UTI, urine protein 1+, glucose 4+, ketones 3+, blood 3+, nitrite positive, leukocyte esterase positive, RBC 59, WBC 1828, urine bacteria 1+ Patient complains of dysuria symptoms, positive for right CVA tenderness CT abdomen pelvis shows mild bilateral renal parenchymal scar formation, no pyelonephritis IV fluids given per sepsis protocol 30 cc/kg Pro-[place] 1.11 Plan -Continue IV ceftriaxone (02/10- -Upgraded to med telemetry due to suspicion of sepsis -Follow urine culture -Follow blood culture -Monitor CBC CMP -Pain management with Tylenol and Percocet -Monitor vitals closely. # Insulin-dependent diabetes mellitus type 2 Home medication is metformin, Januvia, Lantus 45 at bedtime, hemoglobin A1c 12.6. Plan: -Started on Lantus 45 units daily -Insulin sliding scale lispro -Check fingerstick AC -Carb consistent low diet # Electrolyte imbalance # Hypokalemia -Monitor electrolytes, correct as needed DVT prophylaxis: Heparin every 12 GI prophylaxis: Not indicated Diet: Carb consistent low Lines: Peripheral IV Code status: Full code Case discussed with Attending Dr. Barnett and Dr. Eng PGY3. Fatemeh Newton PGY1
[2024-02-12] MEDS: HEPARIN SOD INJ 5000 UNIT/ML VIAL SC (15:07)
--- NOTE | 2024-02-12 19:31 | PC.NURSE ---
T=102.6- cooling measures applied.
[2024-02-12] MEDS: cefTRIAXone/D5w 1gm IV premix 50 ML IV (20:40)
[2024-02-13] VITALS (11 sets, daily range): BP systolic 99–128; BP diastolic 66–81; PULSE 73–112; RESP 16–99; TEMP 35.9–38; O2SAT 93–97
[2024-02-13] MEDS: HEPARIN SOD INJ 5000 UNIT/ML VIAL SC ×2 (00:46→13:33)
[2024-02-13 06:01] LABS: Basophils % (Auto) 0 % (0-2.5); Eosinophils # (Auto) 0.1 Thou/mm3 (0.0-0.5); Eosinophils % (Auto) 1 % (0-10); Hematocrit 32.8 % (36.0-46.0); Hemoglobin 10.7 g/dL (12.0-16.0); Immature Granulocytes % (Auto) 0 % (0-0); Immature Granulocytes Auto 0.05 Thou/mm3 (0.00-0.00); Lymphocytes # (Auto) 2.1 Thou/mm3 (1.0-4.8); Lymphocytes % (Auto) 18 % (10-50); Mean Corpuscular HGB Conc 32.6 g/dl (31.0-37.0); Mean Corpuscular Volume 83 fL (80-100); Monocytes % (Auto) 8 % (0-12); Neutrophils # (Auto) 8.3 Thou/mm3 (1.8-7.7); Neutrophils % (Auto) 72 % (37-80); Nucleated Red Blood Cell % 0 /100 WBC (0); Platelet Count 212 Thou/mm3 (140-440); RDW Standard Deviation 40.7 fL (36.4-46.3); Red Blood Count 3.96 Miln/mm3 (4.00-5.20); White Blood Count 11.4 Thou/mm3 (3.6-11.0)
[2024-02-13 06:43] LABS: Alanine Aminotransferase 8 U/L (10-49); Albumin, Serum 3.9 gm/dL (3.5-5.0); Albumin/Globulin Ratio 1.6 (1.2-2.2); Alkaline Phosphatase 103 U/L (46-116); Anion Gap 10 (7-16); BUN/Creatinine Ratio 18 Ratio (12-20); Bilirubin,Total 0.4 mg/dL (0.3-1.2); Blood Urea Nitrogen 9 mg/dL (9-23); Calcium 8.5 mg/dL (8.3-10.6); Calcium (Corrected) 8.6 mg/dL (8.5-10.1); Carbon Dioxide 20.9 mMol/L (20.0-31.0); Chloride 102 mMol/L (98-107); Creatinine (Component) 0.5 mg/dL (0.6-1.3); Estimated Creatinine Clearance 171.7 mL/min (>60); Globulin 2.5 gm/dL (2.3-3.5); Glucose 205 mg/dL (74-106); Osmolality,Calculated 271 (275-295); Potassium 3.3 mMol/L (3.4-5.1); Sodium 133 mMol/L (136-145); Total Protein 6.4 gm/dL (5.7-8.2); eGFR > 60 See Note
[2024-02-13 06:52] LABS: Aspartate Amino Transferase < 10 U/L (0-34)
[2024-02-13] MEDS: INSULIN LISPRO (AdmeLOG) 1 UNIT/0.01 ML UNIT SC ×3 (07:14→16:16)
--- NOTE | 2024-02-13 08:22 | PC.SS ---
Late note 02/12/24: SS met with patient regarding her d/c plan. Pt is alert/oriented. Pt was admitted for Sepsis/UTI. Pt confirmed demographic and contact information is correct on facesheet. Pt resides with both parents. Pt ambulates independently without assistance or DME. Pt is ok with all ADLs. 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 Patient?s pharmacy of choice is [facility] [address]. Pt named her sister, Darlyn Rivas medical decision maker if she is unable. Patient?s choice is to return home upon d/c. Pt does not have an advance directive, SS offered, and pt declined. Pt states not diabetic and is not on dialysis. Pt followed up with PCP 1 month ago. D/C plan: Return home Next of Kin: Darlyn Rivas, sister, phone# [phone] PCP: Dr. Maryanne Rivas Address: Correct on facesheet
[2024-02-13] MEDS: INSULIN GLARGINE (Lantus) 5 UNIT/0.05 ML (PER 5 UNITS) 45 UNIT SC (08:23)
[2024-02-13] MEDS: oxyCODONE/APAP 5/325 TABLET 1 TAB PO (08:23)
[2024-02-13] MEDS: PANTOPRAZOLE 40 MG TABLET PO (08:24)
[2024-02-13] MEDS: SENNA TABLET 1 TAB PO (08:24)
[2024-02-13] MEDS: POTASSIUM CHLORIDE 10% 20 MEQ/15 ML UDC 40 MEQ PO (08:24)
--- NOTE | 2024-02-13 11:03 | PC.SS ---
Follow up note: Final cultures are pending. Pt is on IV antibiotic. Pt will return home upon dc.
[2024-02-13] MEDS: SODIUM CHLORIDE 0.9% 1000 ML 1,000 ML 75 ML IV (11:42)
--- NOTE | 2024-02-13 13:10 | ESPR_ITS ---
<Statement entered by Snehal Barnett MD - 02/15/24 16:36> I reviewed above note and agree with findings and plans. I have also personally examined the patient with medicine team and went over assessment and plan with medical team including global marketing intern and resident physician. <Statement entered by Humera Eng DO - 02/13/24 15:21> Senior attestation: Patient was examined and case was reviewed with team including attending physician. Note reviewed, I agree with most of its contents and agree with the patient's care. Will continue IV abx, blood cultures negative on prelim 24 hour reads. Urine culture pending Humera Eng DO PGY-3 Documentation for date of: 02/13/24 Subjective Subjective Interval history: Patient seen at bedside Patient overnight fevers, WBC count trending down, still reports fevers and chills. Will continue IV antibiotics, will follow blood culture. Patient will be given 1 L NS maintenance fluid Will continue to monitor patient Exam Vital Signs Temp Pulse Resp BP Pulse Ox O2 Del Method 97.6 F 96 17 121/81 97 Room Air 02/13/24 12:00 02/13/24 12:00 02/13/24 12:00 02/13/24 12:00 02/13/24 12:00 02/13/24 12:00 Narrative Exam GENERAL: no acute distress, AAO x3, well nourished. HEENT: Head AT/ NC. Mucous membranes moist. PERRL. NECK: Supple, no lymphadenopathy, no carotid bruits. CARDIOVASCULAR: RRR. Normal S1/S2, No m/r/g. No pitting edema of bilateral LEs. RESPIRATORY: CTAB. No wheezing, rhonchi, crackles. GASTROINTESTINAL: Abdomen soft, non tender no palpable masses. Bowel sounds present in all 4 quadrants. MUSCULOSKELETAL:? No cyanosis or edema, no visible joint swelling. Positive for CVA tenderness right side. NEUROLOGICAL: CN II-XII grossly intact. No focal deficits. Sensation intact, symmetric. PSYCHIATRIC: Awake and alert, not agitated, normal mood and affect. INTEGUMENTARY: No obvious rashes, no jaundice, normal turgor. Objective Labs 02/13/24 05:03 02/13/24 05:03 Labs: Laboratory Results - last 24 hr 02/13/24 05:03 WBC 11.4 H RBC 3.96 L Hgb 10.7 L Hct 32.8 L MCV 83 MCH 27.0 MCHC 32.6 RDW Std Deviation 40.7 Plt Count 212 Neut % (Auto) 72 Lymph % (Auto) 18 Johnson % (Auto) 8 Eos % (Auto) 1 Baso % (Auto) 0 Neut # (Auto) 8.3 H Lymph # (Auto) 2.1 Johnson # (Auto) 1.0 H Eos # (Auto) 0.1 Baso # (Auto) 0.0 Immature Gran # (Auto) 0.05 H Absolute Nucleated RBC 0.00 Immature Gran % 0 Nucleated RBC % 0 Sodium 133 L Potassium 3.3 L Chloride 102 Carbon Dioxide 20.9 Anion Gap 10 BUN 9 Creatinine 0.5 L Estim Creat Clear Calc 171.7 eGFR > 60 BUN/Creatinine Ratio 18 Glucose 205 H D Calculated Osmolality 271 L Calcium 8.5 Corrected Calcium 8.6 Magnesium 2.0 Total Bilirubin 0.4 AST < 10 ALT 8 L Alkaline Phosphatase 103 Total Protein 6.4 Albumin 3.9 Globulin 2.5 Albumin/Globulin Ratio 1.6 Quality Measures Quality Measures VTE prophylaxis Assessment & Plan Assessment Current Active Medications: Generic Name Dose Route Start Last Admin Trade Name Freq PRN Reason Stop Dose Admin Acetaminophen 650 mg 02/12/24 11:51 Acetaminophen 325 Mg Tablet PO 03/12/24 21:45 Q6HR PRN PAIN(1-3) OR FEVER > 101 Dextrose 25 ml 02/11/24 21:50 Dextrose 50%-Water Inj 50 Ml Syringe IV 03/12/24 21:49 Q15MIN PRN BG 50-70 responsive npo pt Dextrose 50 ml 02/11/24 21:50 Dextrose 50%-Water Inj 50 Ml Syringe IV 03/12/24 21:49 Q15MIN PRN BG <50 OR BG <70 & pt unresponsive Glucagon 1 mg 02/11/24 21:50 Glucagon Inj 1 Mg Vial IM Q15MIN PRN BG <70, and no IV access Heparin Sodium (Porcine) 5,000 unit 02/12/24 13:30 02/13/24 00:46 Heparin Sod Inj 5000 Unit/Ml Vial SC 02/26/24 13:29 5,000 unit Q12H [facility] Administration Ceftriaxone Sodium/Dextrose 50 mls @ 100 mls/hr 02/12/24 21:00 02/12/24 20:40 Rocephin/D5w 1gm Iv Premix IV 02/19/24 20:59 100 mls/hr HS [facility] Administration Sodium Chloride 1,000 mls @ 75 mls/hr 02/13/24 11:26 02/13/24 11:42 Ns IV 02/14/24 00:45 75 mls/hr .[id number] [facility] Administration Insulin Glargine 45 unit 02/12/24 09:00 02/13/24 08:23 Insulin Glargine (Lantus) 5 Unit/0.05 Ml (Per 5 Units) SC 03/13/24 08:59 45 unit QDAY [facility] Administration Insulin Human Lispro 0 unit 02/12/24 07:30 02/13/24 11:24 Insulin Lispro (Admelog) 1 Unit/0.01 Ml Unit SC 03/13/24 07:29 2 unit ACHS [facility] Administration Protocol Ondansetron HCl 4 mg 02/11/24 21:34 Ondansetron Inj 2 Mg/Ml Inj 2 Ml IV 03/12/24 21:33 Q6H PRN NAUSEA OR VOMITING Protocol Oxycodone/Acetaminophen 1 tab 02/12/24 11:50 02/13/24 08:23 Oxycodone/Apap 5/325 Tablet PO 02/16/24 21:33 1 tab Q6H PRN Administration Pain Scale 4-10 (Moderate Pantoprazole Sodium 40 mg 02/12/24 09:00 02/13/24 08:24 Pantoprazole 40 Mg Tablet PO 03/13/24 08:59 40 mg QDAY [facility] Administration Sennosides 1 tab 02/12/24 09:00 02/13/24 08:24 Senna Tablet PO 03/13/24 08:59 1 tab QDAY [facility] Administration Protocol Plan Assessment and Plan: Summary: Ms. Rivas is a 38-year-old female with past medical history of DM type II on insulin admitted for suspicion of sepsis secondary due to UTI treatment and management # SIRS 3/4 # Suspicion of sepsis secondary to # Urinary tract infection # Leukocytosis SIRS positive 3 out of 4, tachycardia, febrile, with source of infection, WBC elevated UA consistent with UTI, urine protein 1+, glucose 4+, ketones 3+, blood 3+, nitrite positive, leukocyte esterase positive, RBC 59, WBC 1828, urine bacteria 1+ Patient complains of dysuria symptoms, positive for right CVA tenderness CT abdomen pelvis shows mild bilateral renal parenchymal scar formation, no pyelonephritis IV fluids given per sepsis protocol 30 cc/kg Pro-Gary 1.11 Plan -Continue IV ceftriaxone (02/10- -started on 1 L NS maintenance fluids -Urine culture from 02/10 for E. coli sensitive to ceftriaxone -Follow other urine culture -Follow blood culture -Monitor CBC CMP -Pain management with Tylenol and Percocet -Monitor vitals closely. # Insulin-dependent diabetes mellitus type 2 Home medication is metformin, Januvia, Lantus 45 at bedtime, hemoglobin A1c 12.6. Plan: -Started on Lantus 45 units daily -Lispro 7 units 3 times daily -Insulin sliding scale lispro -Check fingerstick AC -Carb consistent low diet # Electrolyte imbalance # Hypokalemia -Monitor electrolytes, correct as needed DVT prophylaxis: Heparin every 12 GI prophylaxis: Not indicated Diet: Carb consistent low Lines: Peripheral IV Code status: Full code Case discussed with Attending Dr. Barnett and Dr. Eng PGY3. Fatemeh Newton PGY1
[2024-02-13] MEDS: INSULIN LISPRO (AdmeLOG) 1 UNIT/0.01 ML UNIT 7 UNIT SC (16:17)
[2024-02-13] MEDS: ACETAMINOPHEN 325 MG TABLET 650 MG PO (16:40)
[2024-02-13] MEDS: cefTRIAXone/D5w 1gm IV premix 50 ML IV (20:04)
[2024-02-14] VITALS (7 sets, daily range): BP systolic 82–128; BP diastolic 57–76; PULSE 68–99; RESP 17–96; TEMP 36.1–36.4; O2SAT 94–97
[2024-02-14] MEDS: HEPARIN SOD INJ 5000 UNIT/ML VIAL SC (00:30)
[2024-02-14 06:43] LABS: Basophils % (Auto) 0 % (0-2.5); Eosinophils # (Auto) 0.2 Thou/mm3 (0.0-0.5); Eosinophils % (Auto) 3 % (0-10); Hematocrit 30.9 % (36.0-46.0); Hemoglobin 10.2 g/dL (12.0-16.0); Immature Granulocytes % (Auto) 1 % (0-0); Immature Granulocytes Auto 0.05 Thou/mm3 (0.00-0.00); Lymphocytes # (Auto) 1.8 Thou/mm3 (1.0-4.8); Lymphocytes % (Auto) 25 % (10-50); Mean Corpuscular Hemoglobin 26.8 pg (25.0-35.0); Mean Corpuscular Volume 81 fL (80-100); Monocytes # (Auto) 0.5 Thou/mm3 (0.0-0.8); Monocytes % (Auto) 8 % (0-12); Neutrophils # (Auto) 4.5 Thou/mm3 (1.8-7.7); Neutrophils % (Auto) 63 % (37-80); Nucleated Red Blood Cell % 0 /100 WBC (0); Platelet Count 239 Thou/mm3 (140-440); RDW Standard Deviation 40.4 fL (36.4-46.3); White Blood Count 7.2 Thou/mm3 (3.6-11.0)
[2024-02-14 07:03] LABS: Alanine Aminotransferase < 7 U/L (10-49); Albumin, Serum 3.7 gm/dL (3.5-5.0); Albumin/Globulin Ratio 1.5 (1.2-2.2); Alkaline Phosphatase 97 U/L (46-116); Anion Gap 10 (7-16); Aspartate Amino Transferase < 8 U/L (0-34); BUN/Creatinine Ratio 20 Ratio (12-20); Bilirubin,Total 0.2 mg/dL (0.3-1.2); Blood Urea Nitrogen 10 mg/dL (9-23); Calcium 8.5 mg/dL (8.3-10.6); Calcium (Corrected) 8.7 mg/dL (8.5-10.1); Carbon Dioxide 23.3 mMol/L (20.0-31.0); Chloride 106 mMol/L (98-107); Creatinine (Component) 0.5 mg/dL (0.6-1.3); Estimated Creatinine Clearance 171.7 mL/min (>60); Globulin 2.5 gm/dL (2.3-3.5); Glucose 197 mg/dL (74-106); Magnesium 1.9 mg/dL (1.6-2.6); Osmolality,Calculated 281 (275-295); Potassium 3.4 mMol/L (3.4-5.1); Sodium 139 mMol/L (136-145); Total Protein 6.2 gm/dL (5.7-8.2); eGFR > 60 See Note
[2024-02-14] MEDS: SENNA TABLET 1 TAB PO (09:06)
[2024-02-14] MEDS: PANTOPRAZOLE 40 MG TABLET PO (09:06)
[2024-02-14] MEDS: POTASSIUM CHLORIDE 20 mEq TABCR PO (09:06)
[2024-02-14] MEDS: INSULIN GLARGINE (Lantus) 5 UNIT/0.05 ML (PER 5 UNITS) 45 UNIT SC (09:07)
[2024-02-14] MEDS: INSULIN LISPRO (AdmeLOG) 1 UNIT/0.01 ML UNIT 7 UNIT SC (09:08)
[2024-02-14] MEDS: INSULIN LISPRO (AdmeLOG) 1 UNIT/0.01 ML UNIT SC (09:08)
--- NOTE | 2024-02-14 11:07 | ESDS_ITS ---
<Statement entered by Snehal Barnett MD - 02/15/24 16:36> 38-year-old who presented found to have SIRS criteria with underlining UTI initially thought to be sepsis however on further studies sepsis ruled out. I reviewed above note and agree with findings and plans. I have also personally examined the patient with medicine team and went over assessment and plan with medical team including product management intern and resident physician. <Statement entered by Humera Eng DO - 02/14/24 21:08> Senior attestation: Patient was examined and case was reviewed with team including attending physician. Note reviewed, I agree with most of its contents and agree with the patient's care. Humera Eng DO PGY-3 Planned Discharge Date 02/14/24 DS: Providers Provider Date of admission: 02/11/24 21:34 Primary care physician: ABELINO Leonard Admitting Provider: Alli Roach MD Attending Provider on Admission: Alli Roach MD Consults: 02/12/24 09:53 Referral Registered Dietitian Routine Comment: Referral Registered Dietitian Urgent Comment: Attending Provider on DC: Snehal Barnett MD Discharging Provider: Snehal Barnett MD Anticipated date of discharge: 02/14/24 DS: Diagnosis Problem List Completed Was Problem List Reviewed/Reconciled?: Yes Hospital Course Hospital Course Hospital course: Hospital course: Mr. Rivas is a 38-year-old female with past medical history of insulin-dependent diabetes mellitus who was admitted to [facility] for suspected sepsis secondary to UTI. Patient met SIRS criteria 3/4, had elevated Pro-Gary and UA was consistent with UTI, had elevated Pro-Gary and CTAP was positive for mild bilateral renal parenchymal scar formation. Patient was started on IV antibiotics, was given fluids per sepsis protocol, urine culture was obtained which showed E. coli sensitive to ceftriaxone, patient's pain was managed inpatient. Patient's diabetes control was optimized and patient with Lantus and lispro. Patient condition improved remarkably with the progression of hospital course and patient's fever and chills resolved, further plan is to discharge patient home on oral Macrobid and follow-up with primary care physician closely for optimization of diabetes management. Patient is stable for discharge and patient responded well to hospital treatment. Discharge Diagnoses: # SIRS 3/4 # Sepsis ruled out # Urinary tract infection # Leukocytosis # Insulin-dependent diabetes mellitus type 2 # Electrolyte imbalance # Hypokalemia Case discussed with Attending Dr. Barnett and Dr. Eng PGY3. Fatemeh Newton PGY1 Status at Discharge Functional status at discharge: independent ambulation Overall status at discharge: patient is back to baseline Time Spent with Patient Time attestation: Total time spent providing and/or coordinating discharge services: Greater than 30 minutes Time spent: Greater than 30 minutes Exam Vital Signs Temp Pulse Resp BP Pulse Ox O2 Del Method 97.3 F 68 17 108/73 96 Room Air 02/14/24 08:22 02/14/24 08:22 02/14/24 08:22 02/14/24 08:22 02/14/24 08:22 02/14/24 08:22 Narrative Exam GENERAL: no acute distress, AAO x3, well nourished. HEENT: Head AT/ NC. Mucous membranes moist. PERRL. NECK: Supple, no lymphadenopathy, no carotid bruits. CARDIOVASCULAR: RRR. Normal S1/S2, No m/r/g. No pitting edema of bilateral LEs. RESPIRATORY: CTAB. No wheezing, rhonchi, crackles. GASTROINTESTINAL: Abdomen soft, non tender no palpable masses. Bowel sounds present in all 4 quadrants. MUSCULOSKELETAL:? No cyanosis or edema, no visible joint swelling. NEUROLOGICAL: CN II-XII grossly intact. No focal deficits. Sensation intact, symmetric. PSYCHIATRIC: Awake and alert, not agitated, normal mood and affect. INTEGUMENTARY: No obvious rashes, no jaundice, normal turgor. Discharge Plan Plan Patient Disposition: HOME (Self Care) Patient condition on transfer: Stable Care Plan Goals: Follow up with PCP within 1 week of discharge, advise continued diabetes management with PCP Complete prescribed Macrobid antibiotic course (1 week course) Return to ED for any new or worsening symptoms Prescriptions/Referrals Prescriptions/Med Rec: New nitrofurantoin monohyd/m-cryst [Macrobid] 100 mg capsule 100 mg PO BID 7 Days Qty: 14 0RF Rx Instructions: must administer with a meal/food Continued insulin glargine [Lantus Solostar U-100 Insulin] 100 unit/mL (3 mL) insulin pen 45 unit SUBCUT HS Patient Comments: INJECT 40 UNITS SUBCUTANEOUSLY DAILY metformin 500 mg tablet,ER [email or web address] 24 hr 500 mg PO QDAY Patient Comments: TAKE 1 TABLET BY MOUTH TWICE A DAY Januvia 25 mg tablet 25 mg PO QDAY Patient Comments: TAKE 1 TABLET BY MOUTH EVERY DAY Referrals: Maryanne Rivas FNP [Primary Care Provider] - Patient/Caregiver Discharge Instructions Other Discharge Activity Instructions:: Follow up with PCP within 1 week of discharge, advise continued diabetes management with PCP Complete prescribed Macrobid antibiotic course (1 week course) Return to ED for any new or worsening symptoms Education Materials: Urinary Tract Infections in Women Print Language: Mauritian Stand Alone Forms: Shawna Award Info., Patient Portal Info Letter Discharge Order Discharge Orders: Discharge (Routine); Ordered 02/14/24 Ordered By: Humera Eng Quality Discharge Quality Measures VTE prophylaxis
== END 2024-02-14 11:45 | disposition home or self-care (01) | DRG 463 ==
LOC: SERX 21:49 → SERHOLD 21:53 → S3SX 23:15
PROVIDERS: Nurse Practitioner Primary Care; Student in an Organized Health Care Education/Training Program; Admitting Provider Student in an Organized Health Care Education/Training Program; Emergency Provider Emergency Medicine; PCP Nurse Practitioner Family; Visit Provider Student in an Organized Health Care Education/Training Program
DX: N39.0 Urinary tract infection, site not specified (principal); D64.9 Anemia, unspecified; E11.65 Type 2 diabetes mellitus with hyperglycemia; E87.6 Hypokalemia; Z79.4 Long term (current) use of insulin; Z87.440 Personal history of urinary (tract) infections
CPT/HCPCS: 36415; 74176; 80053; 80061; 81001; 83036; 83605; 83615; 83690; 83735; 83880; 84100; 84145; 84443; 84484; 85025; 85610; 85730; 87040; 87077; 87086; 87186; 87811; 93005; 96365; 96367; 96372; 99285; J0131; J0696; J1643; J1815; J1885; J7030; J7050; Q0162; A9270; J1644

== ENCOUNTER 2024-02-29 13:09 | Emergency (ER) | payer MEDICAID, SELFPAY ==
[2024-02-29 13:58] VITALS: BP 138/82; PULSE 83; RESP 18; TEMP 36.7; O2SAT 97; BMI 35.2
--- NOTE | 2024-02-29 13:59 | EDNOTE_ITS ---
ED Female Urogenital RME/HPI General Chief complaint: Urogenital-Female Stated complaint: BACK PAIN/PAIN WITH URINATION x 4 DAYS Time Seen by Provider: 02/29/24 13:25 Source: patient, RN notes reviewed and old records reviewed Arrival date/time: 02/29/24 13:09 Mode of arrival: ambulatory Limitations: no limitations RME / HPI RME / HPI Narrative: 38yof with pmhx of DM and obesity presents to ED for dysuria and lower back pain x2 days. No fever, vomiting, abdominal pain or flank pain reported; patient c/o mild nausea. Patient has taken Azo with mild relief. Of note, patient completed Macrobid approximately 1 week ago for UTI. Related Data Home Medications ?Medication ?Instructions ?Recorded ?Confirmed insulin glargine 100 unit/mL (3 45 unit subcut HS 02/12/24 02/12/24 mL) subcutaneous pen (Lantus Solostar U-100 Insulin) metformin 500 mg 24 hr 500 mg PO QDAY 02/12/24 02/12/24 tablet,extended release (gastric retention) sitagliptin phosphate 25 mg tablet 25 mg PO QDAY 02/12/24 02/12/24 (Januvia) Previous Rx's ?Medication ?Instructions ?Recorded ondansetron 4 mg disintegrating 4 mg PO Q6H PRN nausea and 02/29/24 tablet vomiting #10 tabs Allergies Allergy/AdvReac Type Severity Reaction Status Date / Time No Known Allergies Allergy Verified 02/29/24 13:11 Review of Systems Review of Systems Systems Reviewed: All systems reviewed, normal except as documented Constitutional Constitutional: Denies chills and Denies fever(s) Gastrointestinal Gastrointestinal: Denies abdominal pain, Reports nausea and Denies vomiting Genitourinary Genitourinary: Reports dysuria and Denies flank pain Past Medical History Past Medical History GASTROINTESTINAL: Positive Obesity ENDOCRINE: Positive Diabetes Mellitus Type 2 Surgical History SURGICAL: Positive Section Social History SMOKING STATUS: Never smoker SUBSTANCE USE: does not use ALCOHOL: Current (Social) ED Exam General Limitations: Present no limitations General appearance: Present alert and in no apparent distress Head Head exam: Present atraumatic and normocephalic Eye Eye exam: Present normal appearance, PERRL and EOMI ENT ENT exam: Present normal exam and mucous membranes moist Neck Neck exam: Present normal inspection and full ROM Chest Chest inspection: Present normal inspection and symmetric chest wall rise Respiratory Respiratory exam: Present normal lung sounds bilaterally; Absent respiratory distress Cardiovascular Cardiovascular exam: Present regular rate and normal rhythm Abdominal Exam Abdominal exam: Present soft; Absent distention or tenderness Extremities Exam Extremities exam: Present normal inspection and full ROM Back Exam Back exam: Absent CVA tenderness (R) or CVA tenderness (L) Neurological Exam Neurological exam: Present alert and oriented X3 Psychiatric Psychiatric exam: Present normal affect and normal mood Skin Skin exam: Present warm, dry, intact and normal color Course Quality Measures none Orders Category Date Time Status UA [Urinalysis] Stat Lab 02/29/24 14:10 Completed Ketorolac Inj [Toradol Inj] Med 02/29/24 14:01 Discontinued 30 mg IM X1 ONE Ondansetron Odt [Zofran Odt] Med 02/29/24 14:01 Discontinued 4 mg PO X1 ONE Vital Signs Vital signs: Vital Signs Temperature 98.1 F 02/29/24 13:58 Pulse Rate 83 02/29/24 13:58 Respiratory Rate 18 02/29/24 13:58 Blood Pressure 138/82 H 02/29/24 13:58 Pulse Oximetry (%) 97 02/29/24 13:58 Oxygen Delivery Method Room Air 02/29/24 13:58 Urogenital - Female MDM Narrative MDM Narrative:: 38yof with pmhx of DM and obesity presents to ED for dysuria and lower back pain x2 days. No fever, vomiting, abdominal pain or flank pain reported; patient c/o mild nausea. Patient has taken Azo with mild relief. Of note, patient completed Macrobid approximately 1 week ago for UTI. Patient data External records reviewed:: [facility] previous records (admit 02/11/24 for hyperglycemia) Clinical information provided by:: patient Social determinants that could affect healthcare access:: none Patient has the following chronic illnesses:: DM, obesity How is presenting disease/condition affected by chronic disease/condition?: exacerbated by Evaluation data The following diagnostics were reviewed and interpreted by me:: lab results Lab and/or radiology exams considered but not ordered:: CT abd/pelvis: do not suspect pyelo or kidney stone Interpretation Summary: UA +leuks, +nitrites Medications / Prescriptions Medications or Prescriptions considered but not ordered:: none Medication administrations:: Medication Administration History Discontinued Medications Ketorolac Tromethamine (Ketorolac Inj 60 Mg/2 Ml Vial) 30 mg IM X1 ONE Stop: 02/29/24 14:02 Last Admin: 02/29/24 14:10 Dose: 30 mg Documented By: Ondansetron HCl (Ondansetron Odt 4 Mg Tabrap) 4 mg PO X1 ONE; Protocol Stop: 02/29/24 14:02 Last Admin: 02/29/24 14:08 Dose: 4 mg Documented By: above medications administered in ED Consultations Consultation(s) initiated? (list below): No Diagnosis Urogenital Female Differential Diagnosis: other (UTI, pyelo, kidney stone, urosepsis) Most likely diagnosis given after review of the tests above:: UTI Admission Indicated Admission indicated?: not indicated Admission Request Was there a request for admission?: No Disposition Plan Disposition Plan: Discharge Discharge Attestation Discharge Attestation: The patient and all family members were given an opportunity to ask questions and understood the discharge instructions. Discharge instructions specifically effects, indications for sooner follow up or return to the emergency department, and the expected course of current diagnosis. Patient condition: Stable Discharge Plan Plan Patient Disposition: HOME (Self Care) Patient condition on transfer: Stable Prescriptions/Referrals Prescriptions/Med Rec: New ondansetron 4 mg tablet,disintegrating 4 mg PO Q6H PRN (Reason: nausea and vomiting) Qty: 10 0RF No Action insulin glargine [Lantus Solostar U-100 Insulin] 100 unit/mL (3 mL) insulin pen 45 unit SUBCUT HS Patient Comments: INJECT 40 UNITS SUBCUTANEOUSLY DAILY metformin 500 mg tablet,ER rosalie.retention 24 hr 500 mg PO QDAY Patient Comments: TAKE 1 TABLET BY MOUTH TWICE A DAY Januvia 25 mg tablet 25 mg PO QDAY Patient Comments: TAKE 1 TABLET BY MOUTH EVERY DAY Referrals: Maryanne Rivas FNP [Primary Care Provider] - In 1 week Problem List Clinical Impression: UTI (urinary tract infection) Patient/Caregiver Discharge Instructions Education Materials: Urinary Tract Infections in Women Additional Instructions: Make sure to drink plenty of fluids. Ibuprofen and Tylenol can be taken as needed for pain. Print Language: Salvadorean Stand Alone Forms: Shawna Award Info., Patient Portal Info Letter PA/ABELINO Supervising Physician JOSEPHINE/ABELINO Supervising Physician: Darlene
[2024-02-29] MEDS: ONDANSETRON ODT 4 MG TABRAP PO (14:08)
[2024-02-29] MEDS: KETOROLAC INJ 60 MG/2 ML VIAL 30 MG IM (14:10)
[2024-02-29 14:31] LABS: Collection Type, Urine Clean Catch
[2024-02-29 14:46] LABS: Bacteria,Urine 4+; Bilirubin,Urine Negative (Negative); Blood,Urine 2+ (Negative); Color,Urine Yellow (Lt Yel-Yel); Glucose, Urine 2+ (Negative); Ketones,Urine Negative (Negative); Leukocyte Esterase,Urine Positive (Negative); Nitrite,Urine Positive (Negative); PH,Urine 6.5 (5.0-7.0); Protein,Urine Trace (Neg - Trace); RBC,Urine 73 /hpf (0-3); Specific Gravity,Urine 1.013 (1.001-1.035); Squamous Epithelial Cell,Urine 26 /hpf (0-5); Urobilinogen,Urine Negative mg/dL (0.0-1.0); WBC,Urine 2099 /hpf (0-5)
[2024-02-29 14:47] LABS: Clarity,Urine Turbid (Clear/Hazy)
== END 2024-02-29 15:21 | disposition home or self-care (01) ==
PROVIDERS: Physician Assistant; Emergency Provider Emergency Medicine; PCP Nurse Practitioner Family
DX: N39.0 Urinary tract infection, site not specified (principal)
CPT/HCPCS: 81001; 96372; 99283; J1885; Q0162

== ENCOUNTER 2024-08-09 08:32 | Emergency (ER) | payer MEDICAID, SELFPAY ==
[2024-08-09 08:48] VITALS: BP 135/83; PULSE 109; RESP 18; TEMP 37.2; O2SAT 98; BMI 35.2
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
== END 2024-08-09 10:33 | disposition home or self-care (01) ==
PROVIDERS: Emergency Provider Family Medicine; PCP Nurse Practitioner Family
DX: S39.91XA Unspecified injury of abdomen, initial encounter (principal); S09.90XA Unspecified injury of head, initial encounter; S29.9XXA Unspecified injury of thorax, initial encounter; S19.9XXA Unspecified injury of neck, initial encounter; Y09 Assault by unspecified means
CPT/HCPCS: 70450; 71250; 72125; 74176; 99284

== ENCOUNTER 2024-10-05 19:09 | Emergency (ER) | payer MEDICAID, SELFPAY ==
[2024-10-05 19:19] VITALS: BP 147/80; PULSE 85; RESP 18; TEMP 36.9; O2SAT 100
--- NOTE | 2024-10-05 19:41 | EDNOTE_ITS ---
<Statement entered by Mabel Covarrubias MD - 10/06/24 04:48> As co-signing physician, I was present and available for consult prn. I concur with the plan and care as documented by the midlevel provider. ED Female Urogenital RME/HPI General Chief complaint: Urogenital-Female Stated complaint: Lower back pain, UTI and yeast infection Time Seen by Provider: 10/05/24 19:35 Arrival date/time: 10/05/24 19:09 38F with history of DM presents to ED with worsening dysuria and flank pain. Patient is on day 5 of Macrobid w/o relief. Patient was also put on fluconazole for a yeast infection. Limitations: no limitations Related Data Home Medications ?Medication ?Instructions ?Recorded ?Confirmed insulin glargine 100 unit/mL (3 45 unit subcut HS 01/1602/12/24 mL) subcutaneous pen (Lantus Solostar U-100 Insulin) metformin 500 mg 24 hr 500 mg PO QDAY 02/12/2401/16 tablet,extended release (gastric retention) sitagliptin phosphate 25 mg tablet 25 mg PO QDAY 02/1102/12/24 (Januvia) Previous Rx's ?Medication ?Instructions ?Recorded ondansetron 4 mg disintegrating 4 mg PO Q6H PRN nausea and 02/29/24 tablet vomiting #10 tabs ibuprofen 800 mg tablet 800 mg PO TID PRN pain #30 t abs 08/09/24 Allergies Allergy/AdvReac Type Severity Reaction Status Date / Time No Known Allergies Allergy Verified 10/05/24 19:14 Review of Systems Review of Systems Systems Reviewed: All systems reviewed, normal except as documented Constitutional Constitutional: Reports system reviewed and no additional complaints, except as documented, Denies fever(s) and Denies headache(s) ENT Ears, Nose, Mouth, and Throat: Denies disequilibrium and Denies headache(s) Cardiovascular Cardiovascular: Reports system reviewed and no additional complaints, except as documented, Denies chest pain and Denies dyspnea Respiratory Respiratory: Reports system reviewed and no additional complaints, except as documented, Denies cough and Denies dyspnea Gastrointestinal Gastrointestinal: Reports system reviewed and no additional complaints, except as documented, Denies abdominal pain, Denies nausea and Denies vomiting Genitourinary Genitourinary: Reports as per HPI, Reports dysuria and Reports flank pain Neurologic Neurologic: Reports system reviewed and no additional complaints, except as documented, Denies confusion, Denies disequilibrium and Denies headache(s) Psychiatric Psychiatric: Denies confusion Past Medical History Past Medical History NEUROLOGIC: Negative Neurological Disorders or Seizures CARDIAC: Negative Cardiac Disorders or Congestive Heart Failure RESPIRATORY: Positive Asthma; Negative Chronic Obstructive Pulmonary Disease (COPD) GASTROINTESTINAL: Positive Gastrointestinal Disorders and Obesity; Negative Hepatitis or Colorectal Cancer GENITOURINARY: Negative Genitourinary Disorders, Renal Disease or Prostate Cancer REPRODUCTIVE: Positive Genital Herpes; Negative Breast Cancer or Testicular Cancer MUSCULOSKELETAL: Positive Musculoskeletal Disorders; Negative Bone Cancer ENDOCRINE: Positive Endocrine Disorders and Diabetes Mellitus Type 2; Negative Diabetes Mellitus Type 1 HEMATOLOGIC: Negative Blood Disorders or Sickle Cell Disease OTHER HISTORY: Positive Chicken Pox; Negative Autoimmune Disease, Blood Transfusions, Blood Transfusion Reaction, Anesthesia Reactions, Organ Transplant, Chemotherapy, Radiation Therapy, Hyperbaric Therapy, MRSA, VRSA, Vancomycin-Resistant Enterococci, Human Immunodeficiency Virus (HIV), Measles, Mumps, Rubella ([place] Measles), Pertussis, Clostridium Difficile, Cancer, Breast Cancer, Cervical Cancer, Colore ctal Cancer, Lung Cancer, Ovarian Cancer, Prostate Cancer or Testicular Cancer Family History FAMILY HISTORY: Positive Family Respiratory Disorders and Family Cardiac Disorders; Negative Family Psychiatric Problems, Family Gastrointestinal Problems, Family Cancer, Family Surgery or Family Anesthesia Reaction Surgical History SURGICAL: Positive Tubal Ligation and Section; Negative Organ Transplant Social History SMOKING STATUS: Never smoker SECOND HAND EXPOSURE: Yes SUBSTANCE USE: does not use ED Exam General Limitations: Present no limitations General appearance: Present alert and in no apparent distress Head Head exam: Present atraumatic Eye Eye exam: Present normal appearance, PERRL and EOMI ENT ENT exam: Present normal exam, normal oropharynx and mucous membranes moist Neck Neck exam: Present normal inspection, full ROM and trachea midline Chest Chest inspection: Present normal inspection and symmetric chest wall rise Respiratory Respiratory exam: Present normal lung sounds bilaterally Cardiovascular Cardiovascular exam: Present regular rate, normal rhythm and normal heart sounds Abdominal Exam Abdominal exam: Present soft and normal bowel sounds Extremities Exam Extremities exam: Present normal inspection and full ROM Back Exam Back exam: Present normal inspection and full ROM Neurological Exam Neurological exam: Present alert, oriented X3 and CN II-XII intact Psychiatric Psychiatric exam: Present normal affect and normal mood Skin Skin exam: Present warm, dry, intact and normal color Course Quality Measures none Orders Category Date Time Status CT abdomen pelvis wo con Stat Exams 10/05/24 21:02 Completed US pelvic complete Stat Exams 10/05/24 21:02 Completed HCG Qualitative,Urine Stat Lab 10/05/24 20:10 Completed Urinalysis, C/S if Indicated Stat Lab 10/05/24 20:10 Completed HYDROcodone*/APAP 5/325 [[place] 5/325] Med 10/05/24 22:21 Discontinued 1 tab PO X1 ONE Naproxen [Naprosyn] Med 10/05/24 19:40 Discontinued 500 mg PO X1 ONE Vital Signs Vital signs: Vital Signs Temperature 98.4 F 10/05/24 19:19 Pulse Rate 85 10/05/24 19:19 Respiratory Rate 18 10/05/24 19:19 Blood Pressure 147/80 H 10/05/24 19:19 Pulse Oximetry (%) 100 10/05/24 19:19 Oxygen Delivery Method Room Air 10/05/24 19:19 O2 at 100% on RA and WNLs Urogenital - Female MDM Narrative MDM Narrative:: 38F with history of DM presents to ED with worsening dysuria and flank pain. Patient is on day 07/21 of Macrobid w/o relief. Patient was also put on fluconazole for a yeast infection. Physical exam reveals uncomfortable-appearing female. Patietn is afebrile, calm, and alert. UA clean. CT and US unremarkable. Meds and auto club travel counselor given. Patient data External records reviewed:: [facility] previous records Clinical information provided by:: patient Social determinants that could affect healthcare access:: none Patient has the following chronic illnesses:: none How is presenting disease/condition affected by chronic disease/condition?: no chronic disease Evaluation data The following diagnostics were reviewed and interpreted by me:: lab results Lab and/or radiology exams considered but not ordered:: ordered Interpretation Summary: above Medications / Prescriptions Medications or Prescriptions considered but not ordered:: ordered Medication administrations:: Medication Administration History Discontinued Medications Hydrocodone Bitart/Acetaminophen (Hydrocodone/[place] 5/325 Tablet) 1 tab PO X1 ONE Stop: 10/05/24 22:22 Naproxen (Naproxen 250 Mg Tablet) 500 mg PO X1 ONE Stop: 10/05/24 19:41 Last Admin: 10/05/24 19:49 Dose: 500 mg Documented By: above Consultations Consultation(s) initiated? (list below): No Diagnosis Urogenital Female Differential Diagnosis: urinary tract infection, bacterial vaginosis, trichomoniasis, cervicitis, ovarian cyst, vaginitis, ruptured ovarian cyst, cyst of Bartholin's gland, cystitis, dysmenorrhea and other (dsyuria) Most likely diagnosis given after review of the tests above:: dsyuria Admission Indicated Admission indicated?: not indicated Admission Request Was there a request for admission?: No Disposition Plan Disposition Plan: Discharge Discharge Attestation Discharge Attestation: The patient and all family members were given an opportunity to ask questions and understood the discharge instructions. Discharge instructions specifically effects, indications for sooner follow up or return to the emergency department, and the expected course of current diagnosis. Patient condition: Stable Discharge Plan Plan Patient Disposition: HOME (Self Care) Discharge Disposition comment: Stable Prescriptions/Referrals Prescriptions/Med Rec: No Action ondansetron 4 mg tablet,disintegrating 4 mg PO Q6H PRN (Reason: nausea and vomiting) Qty: 10 0RF insulin glargine [Lantus Solostar U-100 Insulin] 100 unit/mL (3 mL) insulin pen 45 unit SUBCUT HS Patient Comments: INJECT 40 UNITS SUBCUTANEOUSLY DAILY metformin 500 mg tablet,ER rosalie.retention 24 hr 500 mg PO QDAY Patient Comments: TAKE 1 TABLET BY MOUTH TWICE A DAY Januvia 25 mg tablet 25 mg PO QDAY Patient Comments: TAKE 1 TABLET BY MOUTH EVERY DAY ibuprofen 800 mg tablet 800 mg PO TID PRN (Reason: pain) Qty: 30 0RF Referrals: Maryanne Rivas, RETAIL AREA MANAGER [Primary Care Provider] - In 1 week Problem List Clinical Impression: Dysuria Patient/Caregiver Discharge Instructions Education Materials: ED Dysuria, Uncertain Cause (Adult) Additional Instructions: Please follow-up with PCP within 24-48 hours and return immediately if symptoms worsen. NSAIDs like ibuprofen tend to work better for this type of pain. Print Language: Venezuelan Stand Alone Forms: Patient Portal Info Letter PA/SCOOPING MACHINE TENDER Supervising Physician JOSEPHINE/ABELINO Supervising Physician: Dr. Covarrubias
[2024-10-05] MEDS: NAPROXEN 250 MG TABLET 500 MG PO (19:49)
[2024-10-05 20:28] LABS: Collection Type, Urine Clean Catch
[2024-10-05 20:32] LABS: Bilirubin,Urine Negative (Negative); Blood,Urine Negative (Negative); Clarity,Urine Clear (Clear/Hazy); Color,Urine Colorless (Lt Yel-Yel); Culture Indicated,Urine Not Indicated; Glucose, Urine Negative (Negative); Ketones,Urine Negative (Negative); Leukocyte Esterase,Urine Negative (Negative); Nitrite,Urine Negative (Negative); PH,Urine 6.0 (5.0-7.0); Protein,Urine Negative (Neg - Trace); RBC,Urine 1 /hpf (0-3); Specific Gravity,Urine 1.004 (1.001-1.035); Squamous Epithelial Cell,Urine 1 /hpf (0-5); Urobilinogen,Urine Negative mg/dL (0.0-1.0); WBC,Urine 1 /hpf (0-5)
[2024-10-05 20:49] LABS: HCG Qualitative,Urine Negative
--- NOTE | 2024-10-05 21:02 | XR_ITS ---
Examination: Pelvic ultrasound, transabdominal, complete Technique: Transabdominal ultrasound of the pelvis performed using grayscale imaging Date and time of exam: October 05, 2024, 2119 hours INDICATIONS: Left pelvic pain beginning one week ago FINDINGS: Uterus 11.1 cm endometrial stripe 0.5 cm No uterine mass or intra-uterine gestation Right ovary 3.3 cm arterial flow Left ovary 4.4 cm arterial flow IMPRESSION: Negative study
--- NOTE | 2024-10-05 21:02 | XR_ITS ---
Examination: CT abdomen and pelvis without contrast. Coronal 3-D reconstructions. Sagittal 2-D reconstructions. Date and time of exam:September 15, 2024 2144 hours Comparison August 09, 2024 INDICATIONS: Back pain and flank pain urinary tract infection Beginning 5 days ago CTDI: vol (mGy): 5.2 DLP: (mGycm): 762 Technique: Axial images of the abdomen have been obtained, 3 mm slice thickness Intravenous contrast material has not been administered. Low dose protocols were performed. One or more of the following dose reduction techniques were used; automated exposure control, adjustment of the mA and/or KV according to patient size, use of iterative reconstruction technique. Findings: No focal liver or splenic lesions No gallstones No pancreatic or adrenal mass No renal or ureteral calculi, no hydronephrosis Normal appendix 20 mm fat-containing umbilical hernia No bowel obstruction or diverticulitis No pelvic mass No bladder mass or bladder calculi IMPRESSION: No renal or ureteral calculi, no hydronephrosis Normal appendix No bladder mass or bladder calculi
[2024-10-05] MEDS: HYDROcodone/APAP 5/325 TABLET 1 TAB PO (22:27)
== END 2024-10-05 23:39 | disposition home or self-care (01) ==
PROVIDERS: Physician Assistant; Emergency Provider Emergency Medicine; PCP Nurse Practitioner Family
DX: R30.0 Dysuria (principal); R10.2 Pelvic and perineal pain; R10.9 Unspecified abdominal pain
CPT/HCPCS: 74176; 76856; 81001; 81025; 99283; A9270

== ENCOUNTER 2025-01-14 23:43 | Emergency (ER) | payer MEDICAID, SELFPAY ==
[2025-01-15 00:29] VITALS: BP 173/103; PULSE 93; RESP 18; TEMP 36.7; O2SAT 99
--- NOTE | 2025-01-15 00:34 | EDNOTE_ITS ---
ED Abdominal Pain RME/HPI General Chief Complaint: Abdominal Pain Stated complaint: LEFT FLANK PAIN Time seen by provider: 01/14/25 23:49 Arrival date/time: 01/14/25 23:43 This is a case of 39-year-old female with history of diabetes came in in the emergency room due to left-sided abdominal pain radiating to the left flank for 3 days patient was seen by primary care physician and was diagnosed to have urinary tract infection and was given unknown antibiotic due to persistence of the symptoms this patient decided to sought consult here in the emergency room Limitations: no limitations Related Data Home Medications ?Medication ?Instructions ?Recorded ?Confirmed insulin glargine 100 unit/mL (3 45 unit subcut HS 01/1602/12/24 mL) subcutaneous pen (Lantus Solostar U-100 Insulin) metformin 500 mg 24 hr 500 mg PO QDAY 02/12/2401/16 tablet,extended release (gastric retention) sitagliptin phosphate 25 mg tablet 25 mg PO QDAY 02/1102/12/24 (Januvia) Previous Rx's ?Medication ?Instructions ?Recorded ondansetron 4 mg disintegrating 4 mg PO Q6H PRN nausea and 02/29/24 tablet vomiting #10 tabs ibuprofen 800 mg tablet 800 mg PO TID PRN pain #30 t abs 08/09/24 cephalexin 500 mg capsule 500 mg PO QID #40 caps 01/15 dicyclomine 20 mg tablet 20 mg PO TID PRN abdominal p ain 01/15/25 #20 tabs famotidine 20 mg tablet (Pepcid) 20 mg PO BID #30 tabs 01/15/25 ondansetron 4 mg disintegrating 4 mg PO Q8H #20 tabs 1 03/17/24 tablet Allergies Allergy/AdvReac Type Severity Reaction Status Date / Time No Known Allergies Allergy Verified 10/05/24 19:14 Review of Systems Review of Systems Systems Reviewed: All systems reviewed, normal except as documented Constitutional Constitutional: Reports system reviewed and no additional complaints, except as documented and Reports as per HPI Cardiovascular Cardiovascular: Reports system reviewed and no additional complaints, except as documented and Reports as per HPI Respiratory Respiratory: Reports system reviewed and no additional complaints, except as documented and Reports as per HPI Gastrointestinal Gastrointestinal: Reports system reviewed and no additional complaints, except as documented and Reports as per HPI Musculoskeletal Musculoskeletal: Reports system reviewed and no additional complaints, except as documented and Reports as per HPI Neurologic Neurologic: Reports system reviewed and no additional complaints, except as documented and Reports as per HPI Past Medical History Past Medical History NEUROLOGIC: Negative Neurological Disorders or Seizures CARDIAC: Negative Cardiac Disorders or Congestive Heart Failure RESPIRATORY: Positive Asthma; Negative Chronic Obstructive Pulmonary Disease (COPD) GASTROINTESTINAL: Positive Gastrointestinal Disorders and Obesity; Negative Hepatitis or Colorectal Cancer GENITOURINARY: Negative Genitourinary Disorders, Renal Disease or Prostate C ancer REPRODUCTIVE: Positive Genital Herpes; Negative Breast Cancer or Testicular Cancer MUSCULOSKELETAL: Positive Musculoskeletal Disorders; Negative Bone Cancer ENDOCRINE: Positive Endocrine Disorders and Diabetes Mellitus Type 2; Negative Diabetes Mellitus Type 1 HEMATOLOGIC: Negative Blood Disorders or Sickle Cell Disease OTHER HISTORY: Positive Chicken Pox; Negative Autoimmune Disease, Blood Transfusions, Blood Transfusion Reaction, Anesthesia Reactions, Organ Transplant, Chemotherapy, Radiation Therapy, Hyperbaric Therapy, MRSA, VRSA, Vancomycin-Resistant Enterococci, Human Immunodeficiency Virus (HIV), Measles, Mumps, Rubella (Irish Measles), Pertussis, Clostridium Difficile, Cancer, Breast Cancer, Cervical Cancer, Colorectal Cancer, Lung Cancer, Ovarian Cancer, Prostate Cancer or Testicular Cancer Family History FAMILY HISTORY: Positive Family Respiratory Disorders and Family Cardiac Disorders; Negative Family Psychiatric Problems, Family Gastrointestinal Problems, Family Cancer, Family Surgery or Family Anesthesia Reaction Surgical History SURGICAL: Positive Tubal Ligation and Section; Negative Organ Transplant Social History SMOKING STATUS: Never smoker SECOND HAND EXPOSURE: Yes SUBSTANCE USE: does not use ED Exam General Limitations: Present no limitations General appearance: Present alert, in no apparent distress and other (Patient is awake alert oriented not in distress nontoxic looking well-hydrated well- nourished) Head Head exam: Present atraumatic, normocephalic and normal inspection Eye Eye exam: Present normal appearance, PERRL and EOMI ENT ENT exam: Present normal exam, normal oropharynx and mucous membranes moist Neck Neck exam: Present normal inspection, full ROM and trachea midline; Absent tenderness, meningismus, lymphadenopathy or thyromegaly Chest Chest inspection: Present normal inspection and symmetric chest wall rise; Absent tenderness Respiratory Respiratory exam: Present normal lung sounds bilaterally; Absent respiratory distress, wheezes, stridor, accessory muscle use or prolonged expiratory phase Cardiovascular Cardiovascular exam: Present regular rate, normal rhythm and normal heart sounds; Absent bradycardia, tachycardia, irregular rhythm, systolic murmur or diastolic murmur Abdominal Exam Abdominal exam: Present soft, tenderness (Mild tenderness left lower quadrant left flank no CVA tenderness bladder is not distended not tender) and normal bowel sounds; Absent distention, rebound, rigidity, diminished bowel sounds, hyperactive bowel sounds, hypoactive bowel sounds, organomegaly, trauma, psoas sign, obturator sign, Valle's sign, Rovsing's sign, tenderness at McBurney's Point or hernia Extremities Exam Extremities exam: Present normal inspection and full ROM Back Exam Back exam: Present normal inspection and full ROM Neurological Exam Neurological exam: Present alert, oriented X3, CN II-XII intact, normal gait and reflexes normal; Absent motor sensory deficit Psychiatric Psychiatric exam: Present normal affect and normal mood Skin Skin exam: Present warm, dry, intact and normal color Course Quality Measures none Orders Category Date Time Status CT abdomen pelvis wo con Stat Exams 01/15/25 00:34 Taken Beta Hydroxybutyrate Stat Lab 01/15/25 03:17 Completed CBC Stat Lab 01/15/25 01:32 Completed Comprehensive Metabolic Panel Stat Lab 01/15/25 01:32 Completed HCG Qualitative,Urine Stat Lab 01/15/25 01:47 Completed Lipase Stat Lab 01/15/25 01:32 Completed Urinalysis Stat Lab 01/15/25 01:47 Completed Venous Blood Gas Stat Lab 01/15/25 03:17 Completed Insulin Regular Med 01/15/25 02:42 Discontinued 6 unit IV X1 ONE Morphine* Inj Med 01/15/25 03:06 Discontinued 2 mg IVP X1 ONE Ondansetron Inj [Zofran Inj] Med 01/15/25 03:06 Discontinued 4 mg IVP X1 ONE Pantoprazole Inj [Protonix Inj] Med 01/15/25 03:35 Discontinued 40 mg IVP X1 ONE Sodium Chloride 0.9% 1000 ml [Ns] 1,000 ml Med 01/15/25 02:42 Active IV 999 mls/hr Vital Signs Vital signs: Vital Signs Temperature 98.0 F 01/15/25 00:29 Pulse Rate 93 01/15/25 00:29 Respiratory Rate 18 01/15/25 00:29 Blood Pressure 173/103 H 01/15/25 00:29 Pulse Oximetry (%) 99 01/15/25 00:29 Oxygen Delivery Method Room Air 01/15/25 00:29 Oxygen saturation is 99% Abdominal Pain MDM MDM Narrative MDM Narrative:: This is a case of 39-year-old female with history of diabetes came in in the emergency room due to left-sided abdominal pain radiating to the left flank for 3 days patient was seen by primary care physician and was diagnosed to have urinary tract infection and was given unknown antibiotic due to persistence of the symptoms this patient decided to sought consult here in the emergency room patient is awake alert oriented not in distress nontoxic looking well-hydrated patient vital signs stable patient is afebrile patient abdominal exam is benign nonsurgical no guarding no rebound no rigidity mild tenderness left lower quadrant and left flank but no CVA tenderness bladder is not distended not tender negative psoas negative straight or negative Rovsing's tender McBurney's # negative CVA tenderness blood test showed no leukocytosis mild anemia hemoglobin is 10.5 kidney and liver function is normal no electrolyte imbalance lipase is normal patient urinalysis showed WBC and urine suggestive of urinary tract infection CT scan is normal aside from umbilical hernia patient glucose noted to have 364 recheck blood sugar after bolus of normal saline and insulin and noted to be 284 patient beta hydroxybutyrate is normal venous blood gas is normal anion gap is normal thus patient is not having DKA patient was given also a Protonix IV patient was given morphine and Zofran which improved and resolved the pain patient will follow-up with PCP to be referred to investigative research specialist for further evaluation and treatment of hyperglycemia and to review medication for diabetes she will continue to monitor the blood sugar and inform to return in the emergency room if it is greater than 250 or less than 80 or become symptomatic patient will follow-up to GI specialist for umbilical hernia for any worsening symptoms or any emergent concern return precaution in the ER was advised Patient was discharged with comfortable condition walking with stable gait. Patient verbalized no further complains explained diagnosis and answered patient question. Patient is comfortable with the proposed management plan including the need to follow up with his/her primary care physician and any specialist if applicable Discussed patient for any urgent condition or worsening sx, He/She needed to go to emergency room immediately or call 911. Patient acknowledge the responsibility to follow up as instructed and to monitor her/his symptoms. For any persistence of the symptoms for more than 3-5 days return precaution advi sed. Discussed the result of the test and was given printed discharge instruction Patient data External records reviewed:: [facility] previous records Clinical information provided by:: patient Social determinants that could affect healthcare access:: none Patient has the following chronic illnesses:: None How is presenting disease/condition affected by chronic disease/condition?: no chronic disease Evaluation data The following diagnostics were reviewed and interpreted by me:: lab results and radiology exam(s) Lab and/or radiology exams considered but not ordered:: Reviewed Interpretation Summary: Reviewed Medications / Prescriptions Medications or Prescriptions considered but not ordered:: Given Medication administrations:: Medication Administration History Sodium Chloride (Ns) 1,000 mls @ 999 mls/hr IV .Q1H1M ONE Stop: 01/15/25 03:42 Discontinued Medications Insulin Human Regular (Insulin Hum Regular 1 Unit/0.01 Ml (Per Unit)) 6 unit IV X1 ONE Stop: 01/15/25 02:43 Morphine Sulfate (Morphine Sulf Inj 4 Mg/Ml Vial) 2 mg IVP X1 ONE Stop: 01/15/25 03:07 Ondansetron HCl (Ondansetron Inj 2 Mg/Ml Inj 2 Ml) 4 mg IVP X1 ONE; Protocol Stop: 01/15/25 03:07 Pantoprazole Sodium (Pantoprazole Inj 40 Mg Vial) 40 mg IVP X1 ONE Stop: 01/15/25 03:36 Given Consultations Consultation(s) initiated? (list below): No Diagnosis Differential diagnosis abdominal pain: abdominal pain, acute appendicitis, calculus of kidney, constipation, diverticulitis, endometriosis, gastroenteritis, pancreatitis and small bowel obstruction Most likely diagnosis given after review of the tests above:: Urinary tract infection umbilical hernia Admission Indicated Admission indicated?: not indicated Explain why admission is indicated or not indicated:: Not indicated Admission Request Was there a request for admission?: No Admission Attestation Admission request attestation: Not indicated Disposition Plan Disposition Plan: Discharge Discharge Attestation Discharge Attestation: The patient and all family members were given an opportunity to ask questions and understood the discharge instructions. Discharge instructions specifically effects, indications for sooner follow up or return to the emergency department, and the expected course of current diagnosis. Patient condition: Stable Discharge Plan Plan Patient Disposition: HOME (Self Care) Patient condition on transfer: Stable Prescriptions/Referrals Prescriptions/Med Rec: New cephalexin 500 mg capsule 500 mg PO QID Qty: 40 0RF dicyclomine 20 mg tablet 20 mg PO TID PRN (Reason: abdominal pain) Qty: 20 0RF ondansetron 4 mg tablet,disintegrating 4 mg PO Q8H Qty: 20 0RF famotidine [Pepcid] 20 mg tablet 20 mg PO BID Qty: 30 0RF No Action ondansetron 4 mg tablet,disintegrating 4 mg PO Q6H PRN (Reason: nausea and vomiting) Qty: 10 0RF insulin glargine [Lantus Solostar U-100 Insulin] 100 unit/mL (3 mL) insulin pen 45 unit SUBCUT HS Patient Comments: INJECT 40 UNITS SUBCUTANEOUSLY DAILY metformin 500 mg tablet,ER rosalie.retention 24 hr 500 mg PO QDAY Patient Comments: TAKE 1 TABLET BY MOUTH TWICE A DAY Januvia 25 mg tablet 25 mg PO QDAY Patient Comments: TAKE 1 TABLET BY MOUTH EVERY DAY ibuprofen 800 mg tablet 800 mg PO TID PRN (Reason: pain) Qty: 30 0RF Referrals: Maryanne Rivas FNP [Primary Care Provider] - In 1 week Problem List Clinical Impression: Abdominal pain, Urinary tract infection, Hyperglycemia, Hernia, umbilical Patient/Caregiver Discharge Instructions Education Materials: Abdominal Pain, High Blood Sugar (Hyperglycemia), Urinary Tract Infections in Women, ED Hernia (Adult) Additional Instructions: Follow-up with your primary care physician in 2 days for reevaluation and to be referred to an investigative research specialist for further evaluation and treatment of hyperglycemia and to review your medication for your diabetes check your blood sugar twice a day and return to the emergency room if your blood sugar is greater than 250 or less than 80 or become symptomatic worsening symptoms persistent or any emergent concern call 911 or go to the nearest emergency room follow-up with your primary care physician to be referred to temp recruiter for further evaluation and treatment of umbilical hernia take your medication as directed finish the course of antibiotic increase water intake keep hydrated Print Language: Venezuelan Stand Alone Forms: Shawna Award Info., Patient Portal Info Letter PA/ABELINO Supervising Physician JOSEPHINE/ABELINO Supervising Physician: Dr. Segovia
--- NOTE | 2025-01-15 00:34 | XR_ITS ---
Examination: CT abdomen and pelvis without contrast. Coronal 3-D reconstructions. Sagittal 2-D reconstructions. Date and time of exam: January 15, 2025, 0050 hours INDICATIONS: Onset left flank pain today CTDI: vol (mGy): 12.81 DLP: (mGycm): 801 Technique: Axial images of the abdomen have been obtained, 3 mm slice thickness Intravenous contrast material has not been administered. Low dose protocols were performed. One or more of the following dose reduction techniques were used; automated exposure control, adjustment of the mA and/or KV according to patient size, use of iterative reconstruction technique. Findings: No focal liver or splenic lesions No gallstones No pancreatic or adrenal mass No renal or ureteral calculi, no hydronephrosis Aorta normal size. No bowel obstruction Normal appendix Small fat-containing umbilical hernia, 13 mm No diverticulitis No uterine or adnexal mass. Small ovarian follicular cysts No bladder mass or bladder calculi Mild osteopenia IMPRESSION: No renal or ureteral calculi, no hydronephrosis Normal appendix No bladder mass or bladder calculi
--- NOTE | 2025-01-15 01:24 | PRELIM_ITS ---
CT scan of the abdomen and pelvis without intravenous contrast (axial sections with sagittal and coronal reformats) January 15, 2025 0050 hours Clinical History: ABD PAIN Reference is made to the prior report dated March 03, 2023. Findings: The lung bases are clear. The liver, gallbladder, pancreas, spleen, kidneys and adrenals are unremarkable on this noncontrast study. No evidence of bowel obstruction. The appendix is within normal limits (axail images 150-170/296). There is no mesenteric or retroperitoneal adenopathy. The urinary bladder is unremarkable. The uterus is unremarkable. There are small bilateral ovarian follicles. There is a small umbilical hernia noted. There is no free fluid or free air. The osseous structures are unremarkable. Impression: No evidence of bowel obstruction, free air or abscess. Report Electronically Signed By: Paco Adames 01/15/2025 1:23:56 AM [EST]
[2025-01-15 01:50] LABS: Basophils # (Auto) 0.0 Thou/mm3 (0.0-0.2); Basophils % (Auto) 0 % (0-2.5); Eosinophils # (Auto) 0.1 Thou/mm3 (0.0-0.5); Eosinophils % (Auto) 1 % (0-10); Hematocrit 33.6 % (36.0-46.0); Hemoglobin 10.2 g/dL (12.0-16.0); Immature Granulocytes Auto 0.04 Thou/mm3 (0.00-0.00); Lymphocytes # (Auto) 2.0 Thou/mm3 (1.0-4.8); Lymphocytes % (Auto) 19 % (10-50); Mean Corpuscular HGB Conc 30.4 g/dl (31.0-37.0); Mean Corpuscular Hemoglobin 22.6 pg (25.0-35.0); Mean Corpuscular Volume 74 fL (80-100); Monocytes # (Auto) 0.6 Thou/mm3 (0.0-0.8); Monocytes % (Auto) 6 % (0-12); Neutrophils # (Auto) 7.7 Thou/mm3 (1.8-7.7); Neutrophils % (Auto) 73 % (37-80); Nucleated Red Blood Cell # 0.00 Thou/mm3 (0.00-0.00); Nucleated Red Blood Cell % 0 /100 WBC (0); Platelet Count 305 Thou/mm3 (140-440); RDW Standard Deviation 42.6 fL (36.4-46.3); Red Blood Count 4.52 Miln/mm3 (4.00-5.20); White Blood Count 10.5 Thou/mm3 (3.6-11.0)
[2025-01-15 02:20] LABS: Alanine Aminotransferase 7 U/L (10-49); Albumin, Serum 4.3 gm/dL (3.5-5.0); Albumin/Globulin Ratio 1.9 (1.2-2.2); Alkaline Phosphatase 96 U/L (46-116); Anion Gap 10 (7-16); Aspartate Amino Transferase 10 U/L (0-34); BUN/Creatinine Ratio 22 Ratio (12-20); Bilirubin,Total 0.3 mg/dL (0.3-1.2); Blood Urea Nitrogen 13 mg/dL (9-23); Calcium 8.9 mg/dL (8.3-10.6); Calcium (Corrected) 8.9 mg/dL (8.5-10.1); Carbon Dioxide 22.7 mMol/L (20.0-31.0); Chloride 105 mMol/L (98-107); Creatinine (Component) 0.6 mg/dL (0.6-1.3); Globulin 2.3 gm/dL (2.3-3.5); Glucose 324 mg/dL (74-106); Lipase 45 U/L (12-53); Osmolality,Calculated 288 (275-295); Potassium 3.4 mMol/L (3.4-5.1); Sodium 138 mMol/L (136-145); Total Protein 6.6 gm/dL (5.7-8.2); eGFR > 60 See Note
[2025-01-15 02:30] LABS: Collection Type, Urine Clean Catch
[2025-01-15 02:45] LABS: Bacteria,Urine Rare; Bilirubin,Urine Negative (Negative); Blood,Urine Negative (Negative); Clarity,Urine Clear (Clear/Hazy); Color,Urine Lt-Yellow (Lt Yel-Yel); Glucose, Urine 4+ (Negative); Ketones,Urine Negative (Negative); Leukocyte Esterase,Urine Negative (Negative); Nitrite,Urine Negative (Negative); PH,Urine 6.0 (5.0-7.0); Protein,Urine Negative (Neg - Trace); RBC,Urine 9 /hpf (0-3); Specific Gravity,Urine 1.036 (1.001-1.035); Squamous Epithelial Cell,Urine 26 /hpf (0-5); Urobilinogen,Urine Negative mg/dL (0.0-1.0); WBC,Urine 1 /hpf (0-5)
[2025-01-15 02:50] LABS: HCG Qualitative,Urine Negative
[2025-01-15 02:52] VITALS: BP 135/80; PULSE 82; RESP 17; TEMP 37; O2SAT 97
[2025-01-15 03:24] LABS: Base Excess, Venous -2 (-3-3); O2 Saturation, Venous 97 % (96-97); PCO2, Venous 36 mmHg (36-56); PO2, Venous 79 mmHg (15-58); pH, Venous 7.40 (7.33-7.66)
[2025-01-15 03:28] LABS: Beta Hydroxybutyrate 0.1 mmol/L (<0.6)
[2025-01-15] MEDS: SODIUM CHLORIDE 0.9% 1000 ML 1,000 ML 999 ML IV (03:30)
[2025-01-15] MEDS: ONDANSETRON INJ 2 MG/ML INJ 2 ML 4 MG IVP (03:38)
[2025-01-15] MEDS: MORPHINE SULF INJ 4 MG/ML VIAL IVP (03:51)
[2025-01-15 04:23] VITALS: BP 130/75; PULSE 92; RESP 17; TEMP 37; O2SAT 99
== END 2025-01-15 04:51 | disposition home or self-care (01) ==
PROVIDERS: Nurse Practitioner Family; Emergency Provider Emergency Medicine; PCP Nurse Practitioner Family
DX: N39.0 Urinary tract infection, site not specified (principal)
CPT/HCPCS: 36415; 74176; 80053; 81001; 81025; 82010; 82803; 83690; 85025; 96374; 96375; 99284; J2270; J2405; J2470; J7030